=== PATIENT | male | born 1980 | race Caucasian/White ===

== ENCOUNTER 2021-04-17 15:11 | Outpatient (REF) | payer OTHER, SELFPAY ==
[2021-04-17 15:59] LABS: Hematocrit 43.6 % (42.0-52.0); Hemoglobin 14.6 g/dl (14.0-18.0); Mean Corpuscular HGB Conc 33.5 g/dl (31.0-36.0); Mean Corpuscular Hemoglobin 32.6 pg (27.0-33.0); Mean Corpuscular Volume 97.3 fL (80.0-98.0); Mean Platelet Volume 10.5 fL (9.4-12.4); Platelet Count 238 X10*3/uL (160-400); Red Blood Count 4.48 X10*6/uL (4.60-5.80); Red Cell Distribution Width 12.8 % (11.0-16.0); White Blood Count 5.5 X10*3/uL (4.8-10.8)
[2021-04-17 16:22] LABS: Alanine Aminotransferase 20 U/L (0-40); Albumin Level 4.4 g/dL (3.5-5.0); Alkaline Phosphatase 78 U/L (39-117); Anion Gap 10 (12-20); Aspartate Amino Transferase 18 U/L (5-37); Bilirubin Total 0.5 mg/dL (0.0-1.0); Blood Urea Nitrogen 14 mg/dL (9-16); Calcium 9.5 mg/dL (8.4-10.2); Carbon Dioxide 29 mmol/L (22-29); Chloride 106 mmol/L (96-108); Estimated Glomerular Filt Rate > 60; Glucose Random 75 mg/dL (60-115); Phosphorus 2.9 mg/dL (2.7-4.5); Potassium 4.7 mmol/L (3.3-5.1); Sodium 140 mmol/L (135-145)
== END 2021-04-17 15:12 | disposition home or self-care (01) ==
LOC: HO.LAB 15:11
PROVIDERS: PCP Family Medicine; Visit Provider Nurse Practitioner Psychiatric/Mental Health
DX: F50.9 Eating disorder, unspecified (principal)
CPT/HCPCS: 80053; 84100; 85027

== ENCOUNTER 2021-05-19 08:00 | Outpatient (RCR) | payer OTHER, SELFPAY ==
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
[2021-04-25 16:21] VITALS: BMI 16.0
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
--- NOTE | 2021-04-26 15:28 | PC.NURSE ---
Case opened in treatment team.
--- NOTE | 2021-05-01 13:59 | HO.PHPPROGNO ---
Subjective Subjective Date of Service: 05/01/21 Reason For Visit: MDD, recurrent, severe, Generalized Anxiety D/o Guardianship: No Medical Problems Affecting Mental Status: No Interim History: Client reports he started trileptal last night, and has taken 2 doses as of today. Reports he has been kind of struggling, dealing with anger . Denies any other concerns at this time. No SI/HI reported, no safety concern at this time. Medication Compliance: Intermittent Side effects from medications: No Attending Groups: Yes Review of Systems Acute medical concerns: No Medical Review of Systems: unchanged Review of Systems Review of Systems Yes all other systems are reviewed and are negative Constitutional: Reports no additional constitutional complaints Mental Status Exam Mental Status Exam Narrative: Well-developed, well-nourished male, in NAD. Describes mood lability at times, outbursts of anger. Patient Appearance: Well Grooomed and Appropriate Patient Orientation: Person, Place, Time and Situation Level of Consciousness: Appropriate and Alert Patient Behavior: Appropriate, Cooperative and Good Eye Contact Mood Description: Appropriate and Anxious Affect Description: Appropriate, Depressed and Anxious Patient Cognition Impaired: No Ability to Follow Directions: Excellent Speech Pattern: Clear, Appropriate and Coherent Memory Description: Intact Hallucinations: None Delusions: Not Present Thought Process: Intact, Goal Oriented and Linear Thought Content: positive for Intact, positive for Goal Oriented and positive for Linear Depressive Symptoms: Increased Anxiety, Increased Irritability, Loss of Int. in Activity and Difficulty Concentrating Judgement: Fair Diagnostics Vital Signs (24Hr): Body Mass Index 16.0 Assessment & Plan Assessment & Plan (1) MDD (major depressive disorder), recurrent episode, moderate: Status: Acute Code(s): F33.1 - Major depressive disorder, recurrent, moderate Assessment and Plan: Client reports he started trileptal last night, and has taken 2 doses as of today. Patient requested more information about Trileptal. Medication was discussed, including risks, benefits, side effects, and alternatives. States he is willing to continue taking it, and is willing to increase dose during next encounter. He reports he has been kind of struggling, dealing with anger . Denies any other concerns at this time. No SI/HI reported, no safety concern at this time. (2) KYLIE (generalized anxiety disorder): Status: Acute Code(s): F41.1 - Generalized anxiety disorder Assessment and Plan: Reports some anxiety, states that he is struggling with his anger and learning what his triggers are. (3) Borderline personality disorder: Status: Acute Code(s): F60.3 - Borderline personality disorder (4) Post traumatic stress disorder (PTSD): Status: Acute Code(s): F43.10 - Post-traumatic stress disorder, unspecified Assessment and Plan: 1. Continue current medication regimen as prescribed. 2. Consider increase in Trileptal next visit. 3. Follow-up as per protocol. Patient educated on: diagnosis and medication risk/benefits Certification I certify that partial hospital treatment is medically necessary due to the symptoms and problems resulting from the patient's mental illness and the failure to treat the patient at the partial hospital level of care would likely result in the patient requiring inpatient psychiatric care which could not be prevented at a less intensive level of care. I spent minutes with the patient and/or on the patient floor today, greater than?50% of which was spent counseling/coordinating care. Discharge Plan Discharge Attending provider: Jeffrey Martin Primary Care Provider: Jesse Longo Medications: New oxcarbazepine [Trileptal] 150 mg tablet 150 mg PO BID Qty: 14 RF: 0 No Action oxycodone 10 mg tablet 10 mg PO BID PRN (Reason: Pain) RF: 0 Referrals: Jesse Longo MD [Primary Care Provider] - 1 Week Telehealth Telehealth Location of provider rendering services: practice address Location of patient: address on file Patient Identification confirmed using: Name, : Yes Telehealth method: video Patient verbally consented to treatment: Yes Patient verbally consented to billing insurance company: Yes Patient informed of any privacy concerns related to visit: Yes Time spent with patient (mins): 15
--- NOTE | 2021-05-01 15:44 | PC.NURSE ---
I called and spoke with pt about aftercare options. He agreed to call MELVIN Roman at [facility] to inquire about the intensive/ full model DBT program. I agreed tto call central registration at [facility] to inquire about a referral for therapy/ med management (knowing that he might be assigned a DBT therapist if he gets into the program). Pt is scheduled to discharge on Saturday, 05/19. He asked me to contact his work to let them know he is in treatment, and he will send me the contact info via email.
--- NOTE | 2021-05-01 15:48 | PC.NURSE ---
After speaking with pt and getting his permission, I called [facility] central registration and spoke to Daphne. She will send (email) paperwork for me or pt to fill out for a referral. She said if pt gets into the DBT program, this paperwork will apply to that. Or, he will be a regular referral for therapy/ med management.
--- NOTE | 2021-05-05 12:23 | P.EN_ITS ---
Event Note Date of Service: 05/05/21 Event Note: A script sent to pharmacy for 14 day supply of Trileptal 150 mg b. i.d..
--- NOTE | 2021-05-09 11:19 | P.PNPSP_ITS ---
Subjective Subjective Date of Service: 05/09/21 Reason For Visit: MDD, recurrent, severe, Generalized Anxiety D/o Interim History: Patient evaluated remotely this morning and upon interview he reports he has been adherent with trileptal 150 mg BID x 8 days, says its going pretty well I think. Says he had poor sleep last night but in general i feel little less anxious, also notices fewer angry outbursts, the severity has been a little bit less, im a little more even keeled. Pt denies adverse effects, no rash. He does not want dose changes, as he wants to give it more time. Says he is trying to learn more about his triggers for anger through the program. Pt complains of inattention, feels zoned out and says his ability to read a book is poor, which is causing frustration. Willing to talk with medication for ADHD with his PCP, discussed vyvanse but that I would not start a controlled substance at [facility]. Pt denies stressors other than having looming anxiety that i have to go back to work. However, feels he is getting myself into a better routine, which should help with work and setting myself up for success. Pt says he feels safe, denies SI/SIB/HI or assaultive ideation. Medication Compliance: Yes Side effects from medications: No Attending Groups: Yes Review of Systems Acute medical concerns: No Medical Review of Systems: unchanged Mental Status Exam Mental Status Exam Narrative: Well-developed, well-nourished male, in NAD.? Describes mood lability at times, outbursts of anger. Patient Appearance:?Well Groomed and Appropriate Patient Orientation:?Person, Place, Time and Situation Level of Consciousness:?Appropriate and Alert Patient Behavior:?Appropriate, Cooperative and Good Eye Contact Mood Description:?Appropriate and Anxious Affect Description:?Appropriate, Depressed and Anxious Patient Cognition Impaired:?No Ability to Follow Directions:?Excellent Speech Pattern:?Clear, Appropriate and Coherent Memory Description:?Intact Hallucinations:?None Delusions:?Not Present Thought Process:?Intact, Goal Oriented and Linear Thought Content:?positive for Intact, positive for Goal Oriented and positive for Linear Depressive Symptoms:?Increased Anxiety, Increased Irritability, Loss of Int. in Activity and Difficulty Concentrating Judgment:?Fair Diagnostics Vital Signs (24Hr): BMI result Body Mass Index 16.0 Assessment & Plan Assessment & Plan (1) Borderline personality disorder: Status: Acute Code(s): F60.3 - Borderline personality disorder (2) KYLIE (generalized anxiety disorder): Status: Acute Code(s): F41.1 - Generalized anxiety disorder Assessment and Plan: Has noticed some improvement in anxiety, has hx of struggling with his anger and he is trying to learn what his triggers are. (3) MDD (major depressive disorder), recurrent episode, moderate: Status: Acute Code(s): F33.1 - Major depressive disorder, recurrent, moderate Assessment and Plan: Pt has been adherent on trileptal x 8 days.?Reports positive effect for mood s tability. Does not want med changes, wants to continue trial of trileptal 150 mg BID and monitor for benefit. No SI/HI reported, no safety concern at this time. (4) Post traumatic stress disorder (PTSD): Status: Acute Code(s): F43.10 - Post-traumatic stress disorder, unspecified Assessment and Plan: 1. Continue current medication regimen as prescribed. 2. Consider increase in Trileptal next visit. 3. Follow-up as per protocol. Patient educated on: medication risk/benefits Certification I certify that partial hospital treatment is medically necessary due to the symptoms and problems resulting from the patient's mental illness and the failure to treat the patient at the partial hospital level of care would likely result in the patient requiring inpatient psychiatric care which could not be prevented at a less intensive level of care. I spent minutes with the patient and/or on the patient floor today, greater than?50% of which was spent counseling/coordinating care. Discharge Plan Discharge Attending provider: Jeffrey Martin Primary Care Provider: Jesse Longo Medications: New oxcarbazepine [Trileptal] 150 mg tablet 150 mg PO BID 14 Days Qty: 28 RF: 0 No Action oxycodone 10 mg tablet 10 mg PO BID PRN (Reason: Pain) RF: 0 Referrals: Jesse Longo MD [Primary Care Provider] - 1 Week
--- NOTE | 2021-05-09 14:06 | PC.NURSE ---
I spoke to pt about aftercare. He said he did complete an evaluation for the full-model intensive DBT program at [facility], and was accepted into the program. He said, however, that there is a 6 week wait before he can start. He met with and was evaluated by MELVIN Roman, the DBT coordinator. He said that Elio suggested he not attempt to get a regular therapist at [facility] before getting into the DBT program, as he would then have to be re-evaluated for DBT, and that would mean losing his place in line to get in to the program. So, pt is opting to wait to get a therapist until the DBT program starts. They will assign him a DBT therapist. He is looking into support groups online to use for support while he waits.
--- NOTE | 2021-05-16 11:42 | HO.PHPPROGNO ---
Subjective Subjective Date of Service: 05/16/21 Reason For Visit: MDD, recurrent, severe, Generalized Anxiety D/o Interim History: Patient evaluated this morning and upon interview he reports Im okay, im pretty good. Continues to report trileptal has been messing with my sleep a little bit, but says it feels like trade off as long as im able to get rest, as he also feels it has been helping with his mood sx, anxiety, and agitation, Im feeling the benefit. Pt reports he will try to take the second trileptal dose earlier, at 3-5pm, to see if this helps with sleep, although overall he does feel he has been getting adequate sleep. has a lull, doing something good. Stressors include thoughts of going back to work and whether or not i even wanna stay in that career path. Says groups have been helpful, as he has been learning how to care for myself. Plans to talk to PCP about vyvanse.? Medication Compliance: Yes Side effects from medications: No Attending Groups: Yes Review of Systems Acute medical concerns: No Medical Review of Systems: unchanged Mental Status Exam Mental Status Exam Narrative: Well-developed, well-nourished male, in NAD.? Patient Appearance:?Well Groomed and Appropriate Patient Orientation:?Person, Place, Time and Situation Level of Consciousness:?Appropriate and Alert Patient Behavior:?Appropriate, Cooperative and Good Eye Contact Mood Description:? okay . Affect Description:? Stable, full range of affect. Patient Cognition Impaired:?No Ability to Follow Directions:?Excellent Speech Pattern:?Clear, Appropriate and Coherent Memory Description:?Intact Hallucinations:?None Delusions:?Not Present Thought Process:?Intact, Goal Oriented and Linear Thought Content:?positive for Intact, positive for Goal Oriented and positive for Linear Depressive Symptoms:?Increased Anxiety, Difficulty Concentrating Judgment:?Intact Diagnostics Vital Signs (24Hr): BMI result Body Mass Index 16.0 Assessment & Plan Assessment & Plan (1) Borderline personality disorder: Status: Acute Code(s): F60.3 - Borderline personality disorder (2) Post traumatic stress disorder (PTSD): Status: Acute Code(s): F43.10 - Post-traumatic stress disorder, unspecified (3) KYLIE (generalized anxiety disorder): Status: Acute Code(s): F41.1 - Generalized anxiety disorder (4) MDD (major depressive disorder), recurrent episode, moderate: Status: Acute Code(s): F33.1 - Major depressive disorder, recurrent, moderate Assessment and Plan: Pt reports positive effect on Trileptal dose of 150 mg b.i.d..? He reports that he feels it is helping stabilize his mood. Does not want med changes. Discussed taking second dose closer to 3-5pm due to reports that it is affecting his sleep onset. Otherwise no questions or concerns. 1. Continue Trileptal 150 mg b.i.d., script sent. 2. Will follow up per protocol as needed Certification I certify that partial hospital treatment is medically necessary due to the symptoms and problems resulting from the patient's mental illness and the failure to treat the patient at the partial hospital level of care would likely result in the patient requiring inpatient psychiatric care which could not be prevented at a less intensive level of care. I spent minutes with the patient and/or on the patient floor today, greater than?50% of which was spent counseling/coordinating care. Discharge Plan Discharge Attending provider: Jeffrey Martin Primary Care Provider: Jesse Longo Medications: New oxcarbazepine [Trileptal] 150 mg tablet 150 mg PO BID Qty: 60 RF: 0 No Action oxycodone 10 mg tablet 10 mg PO BID PRN (Reason: Pain) RF: 0 Referrals: Jesse Longo MD [Primary Care Provider] - 1 Week Stand Alone Forms: Patient Portal Discharge page
--- NOTE | 2021-05-19 12:45 | PC.NURSE ---
Patient discharging from the program today. Checked in with patient and reviewed patient medications with patient. Patient reports taking his medications as prescribed. Denied SI or any safety concerns. Patient feels good about discharge and feels ready.
--- NOTE | 2021-05-19 16:12 | HO.PHPPROGNO ---
Subjective Subjective Date of Service: 05/19/21 Reason For Visit: MDD, recurrent, severe, Generalized Anxiety D/o Guardianship: No Medical Problems Affecting Mental Status: No Interim History: Favored reports feeling stable, and that he is ready to complete PHP. Reports that his symptoms of anxiety and depression have decreased, and that he now has more tools to learn how to deal with life stressors. Reports that he believes he may need Vyvanse for attention deficit, plans to meet with his outpatient provider regarding this. Medication Compliance: Yes Side effects from medications: No Attending Groups: Yes Review of Systems Acute medical concerns: No Medical Review of Systems: unchanged Review of Systems Review of Systems Yes all other systems are reviewed and are negative Constitutional: Reports no additional constitutional complaints Mental Status Exam Mental Status Exam Narrative: Well-developed, well-nourished male, in NAD.? Patient Appearance:?Well Groomed and Appropriate Patient Orientation:?Person, Place, Time and Situation Level of Consciousness:?Appropriate and Alert Patient Behavior:?Appropriate, Cooperative and Good Eye Contact Mood Description:? good . Affect Description:? Stable, full range of affect. Patient Cognition Impaired:?No Ability to Follow Directions:?Excellent Speech Pattern:?Clear, Appropriate and Coherent Memory Description:?Intact Hallucinations:?None Delusions:?Not Present Thought Process:?Intact, Goal Oriented and Linear Thought Content:?positive for Intact, positive for Goal Oriented and positive for Linear Depressive Symptoms:?Increased Anxiety, Difficulty Concentrating Judgment:?Intact Diagnostics Vital Signs (24Hr): BMI result Body Mass Index 16.0 Assessment & Plan Assessment & Plan (1) MDD (major depressive disorder), recurrent episode, moderate: Status: Acute Code(s): F33.1 - Major depressive disorder, recurrent, moderate Assessment and Plan: They have a describes his mood as stable. Reports he feels ready to leave the program, and that he now has more coping tools to utilize. No thoughts of harm to self or others, no safety concern. He reports that overall he believes his agitation and anger that he feels at times may actually be due to undiagnosed ADHD. He states that he plans to ask his outpatient provider about medication Vyvanse. Medication education, including risks and benefits, provided regarding Vyvanse, Strattera, Trileptal. Reports he is satisfied with Trileptal dose of 150 mg b.i.d.. He reports that he feels it is helping stabilize his mood. Requests a refill, refill sent to his pharmacy for 30 days supply. (2) KYLIE (generalized anxiety disorder): Status: Acute Code(s): F41.1 - Generalized anxiety disorder (3) Borderline personality disorder: Status: Acute Code(s): F60.3 - Borderline personality disorder (4) Post traumatic stress disorder (PTSD): Status: Acute Code(s): F43.10 - Post-traumatic stress disorder, unspecified Assessment and Plan: 1. Continue Trileptal 150 mg b.i.d., script sent. 2. Client appears stable at this time for discharge from [facility]. 3. Client will follow up with outpatient provider going forward. Reason for contiued partial hosp. stay Substantial Risk for: stable for discharge Certification I certify that partial hospital treatment is medically necessary due to the symptoms and problems resulting from the patient's mental illness and the failure to treat the patient at the partial hospital level of care would likely result in the patient requiring inpatient psychiatric care which could not be prevented at a less intensive level of care. I spent minutes with the patient and/or on the patient floor today, greater than?50% of which was spent counseling/coordinating care. Discharge Plan Discharge Attending provider: Jeffrey Martin Primary Care Provider: Jesse Longo Medications: New oxcarbazepine [Trileptal] 150 mg tablet 150 mg PO BID Qty: 60 RF: 0 No Action oxycodone 10 mg tablet 10 mg PO BID PRN (Reason: Pain) RF: 0 Referrals: Jesse Longo MD [Primary Care Provider] - 1 Week Stand Alone Forms: Patient Portal Discharge page Telehealth Telehealth Location of provider rendering services: practice address Location of patient: address on file Patient Identification confirmed using: Name, : Yes Telehealth method: video Patient verbally consented to treatment: Yes Patient verbally consented to billing insurance company: Yes Patient informed of any privacy concerns related to visit: Yes Time spent with patient (mins): 15
== END 2021-05-22 07:59 | disposition home or self-care (01) ==
LOC: HO.PHPA 08:00
PROVIDERS: PCP Family Medicine; Visit Provider Psychiatry & Neurology Psychiatry
DX: F33.1 Major depressive disorder, recurrent, moderate (principal); F41.1 Generalized anxiety disorder; F60.3 Borderline personality disorder; F43.10 Post-traumatic stress disorder, unspecified
CPT/HCPCS: 90791; 90853; 99499

== ENCOUNTER → 2023-08-16 13:00 | Outpatient (BNV) | payer OTHER, SELFPAY | PROVIDERS: Visit Provider Psychiatry & Neurology Psychiatry | DX: F39 Unspecified mood [affective] disorder (principal); F41.1 Generalized anxiety disorder; F43.10 Post-traumatic stress disorder, unspecified; F50.9 Eating disorder, unspecified; F90.9 Attention-deficit hyperactivity disorder, unspecified type; Z86.59 Personal history of other mental and behavioral disorders | CPT/HCPCS: 90792; 99213; 99214 ==

== ENCOUNTER 2023-08-21 12:45 | Outpatient (RCR) | payer OTHER, SELFPAY ==
[2023-08-08 10:51] VITALS: BP 119/73; PULSE 82; TEMP 37.1
[2023-08-08 10:53] VITALS: BMI 15.0
--- NOTE | 2023-08-08 18:20 | HO.PHP ---
Client's case has been opened and reviewed in treatment team.
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
--- NOTE | 2023-08-13 16:13 | HO.PHP ---
PHP admin faxed over the referral for [facility] for OP therapy and med management. PHP staff is awaiting a response on the scheduled appointment date and time.
--- NOTE | 2023-08-15 16:31 | HO.PHP ---
PHP staff member followed up with Daphne through [facility] in regards to a message that was left by Jay due to the number not working that was provided. Daphne is the livestock yard supervisor for referrals. Daphne explored when the clients discharge date will be so she can have Jay register him. [facility] staff provided that information. Daphne expressed that they will call with an appointment shortly. PHP staff also explored how med mangement looks, in which Daphne provided insight.
--- NOTE | 2023-08-15 16:44 | HO.PHP ---
Tim informed PHP staff member during one of the groups that his PCP is working with him on accessing support through the [facility] for his eating disorder.
--- NOTE | 2023-08-16 14:53 | HO.PHP ---
[facility] staff member met with Tim due to him becoming dysregulated in group two. Tim was tearful and expressed fear around his future/ the unknown. [facility] staff encouraged Tim to reframe his way of thinking and to bring himself back to the here and now when he catches himself thinking into the future. Tim talked about decisions he has to make and what will happen if he doesn't. Tim disclosed he wants to go back to school but doesn't know if now is the right time. [facility] staff member encouraged him to write down the pros and cons to help him organize his thoughts. Tim found this to be helpful. Tim was able to regulate and return to group.
--- NOTE | 2023-08-16 23:50 | HO.PHPPROGNO ---
Subjective Subjective Date of Service: 08/16/23 Reason For Visit: MDD,KYLIE Interim History: Patient still dealing with significant amount of anxiety and emotional dysregulation. Has been on Trileptal for a couple of years which has helped to some degree with his mood dysregulation, irritability and impulsivity without it I'm like Dr. Beavers and Mr. Koroma. But overall he reports his mood stability as still really bad (at a 2 out of 10) as he has not been able to tolerate the further increase in dose to 450 mg/d (particularly the AM dose) and has remained at 300 mg/d dose. He does not feel the Trileptal has helped with depression, cognitive dissonance, negative self talk, panic symptoms, PTSD, cognitive anxiety, intrusive thoughts, as well as hyperfixation and ADHD symptoms, especially executive functioning and problem-solving. He also reports some tendencies toward being a hyperchondriac , and describes obsessive ruminations, gets emotionally flooded easily by his internal thought loops and this interferes with his ability to self regulate as well as negatively impacting his social interactions as well as general functioning. He relays feeling demoralized and feels he is in a no win situation with the ADHD because he is unable to tolerate any stimulant medication (which had been immensely helpful to him as a young adult) due to their appetite-suppressing effects and being woefully underweight. He also shares that he struggles with GI issues with cause significant discomfort and pain which makes eating difficult, and further aggravates the ED and struggles with low weight (currently at 110 lbs), but also shares that he has struggled with bed sores on his lower back and buttocks from his wheelchair, which causes him such distress that it is a constant reminder to also avoid putting on too much weight. (He says he is expecting a new wheelchair but not until later in the year.) He has never been treated with an antipsychotic mood stabilizer, and given the severity of his PTSD symptoms, especially when going into further detail regarding significant iatrogenic traumas over the years which appear to strongly correlate with his ED, and has been further compounded by poor appetite relating to severe anxiety and depression. We discuss a number of treatment options including ABilify and Latuda. Given concerns about patient being able to sustain an adequate caloric intake, I suggest we try the ABilify. However patient shared being quite eager to take the Latuda, he is hoping that the caloric requirement will keep him accountable for eating more regularly and feels he optimistic he will be able to do this because he is so motivated to try a new medication. Given his issues with ADHD as well as severe anxiety, we discussed trialling Intuniv in the late afternoon for now, to see how sensitive he is and determine whether he would be able to tolerate BID dosing, or if too sedating we will focus on HS dosing. He is also without a current psych med provider, his PCP has been managing medication. Medication Compliance: Yes Side effects from medications: No Attending Groups: Yes Review of Systems Acute medical concerns: No Mental Status Exam Mental Status Exam Narrative: Alert, oriented, in no acute distress. Calm, cooperative, engaged. Paraplegic, ambulates in wheelchair. No tics, tremors, or dysarthria. No psychomotor agitation or neurovegetative retardation. Eye contact maintained. Mood depressed, affect dysthymic, tearfulness. Speech normal. Thought process scattered, linear, coherent. Thought content related to stressors, executive dysfunction, feeling overwhelmed, some transient helplessness and hopelessness, denies SI, intention or plan. Denies any aggressive ideation. No paranoia or delusional content elicited. No evidence of psychosis. Insight and judgment fair but adequate. Diagnostics Vital Signs (24Hr): BMI result Body Mass Index 15.0 Assessment & Plan Assessment & Plan (1) Bipolar disorder, unspecified: Qualifiers: Active/Remission status: currently active Current bipolar episode type: depressed Current episode severity: moderate Qualified Code(s): F31.32 - Bipolar disorder, current episode depressed, moderate Status: Acute Code(s): F31.9 - Bipolar disorder, unspecified (2) Eating disorder, unspecified: Qualifiers: Eating disorder type: unspecified eating disorder Qualified Code(s): F50.9 - Eating disorder, unspecified Status: Acute Code(s): F50.9 - Eating disorder, unspecified Assessment and Plan: restricting behaviors related to iatrogenic trauma/PTSD-related ED as well as reasonable concerns for developing sores in addition to possible Anorexia Nervosa (2 out 3 criteria) (3) Post traumatic stress disorder (PTSD): Status: Acute Code(s): F43.10 - Post-traumatic stress disorder, unspecified (4) Other mixed anxiety disorders: Status: Acute Code(s): F41.3 - Other mixed anxiety disorders (5) Attention-deficit hyperactivity disorder, unspecified type: Qualifiers: Attention deficit-hyperactivity disorder type: other Qualified Code(s): F90.8 - Attention-deficit hyperactivity disorder, other type Status: Acute Code(s): F90.9 - Attention-deficit hyperactivity disorder, unspecified type Assessment and Plan: Attention deficit, executive dysfunction Per patient report, hx of neuropsych testing +dx ADHD (6) Unspecified mental disorder due to known physiological condition: Status: Acute Code(s): F09 - Unspecified mental disorder due to known physiological condition Assessment and Plan: r/o mild neurocognitive disorder due to known physiological condition (TBI, nutritional deficiency) Plan Latuda 40 mg - start 1/2 tablet (20 mg) daily with evening meal once tolerated may increase to full tablet 40 mg start gunafacine ER 1 mg daily in late afternoon (depending on tolerance will decide if AM dosing will help with anxiety, or whether will remain as evening dosing) continue oxcarbazepine 150 mg BID for now (finds 300 mg in AM too sedating) continue buspirone 15 mg BID pending routine lab work, nutritional labs, and baseline EKG reviewed VS from 08/07, will recheck next week with starting guanfacine ER continue to monitor Patient educated on: diagnosis, medication risk/benefits and substance abuse Informed Consent: understands Reason for contiued partial hosp. stay Substantial Risk for: inability to function and med/psych decompensation Certification I certify that partial hospital treatment is medically necessary due to the symptoms and problems resulting from the patient's mental illness and the failure to treat the patient at the partial hospital level of care would likely result in the patient requiring inpatient psychiatric care which could not be prevented at a less intensive level of care. Total time managing care of this patient today __30__ minutes. Discharge Plan Discharge Attending provider: Olimpia Rodriguez Medications: New lurasidone 40 mg tablet 40 mg PO QPM Qty: 20 0RF Rx Instructions: must administer with food (at least 350 calories) guanfacine 1 mg tablet extended release 24 hr 1 mg PO DAILY Qty: 20 0RF Continued oxcarbazepine 150 mg Tablet See Rx Instructions .ROUTE .COMPLEX Rx Instructions: Take two tabs in the morning and 1 tab in the evening. buspirone 15 mg Tablet 15 mg PO BID
--- NOTE | 2023-08-20 11:01 | HO.PHP ---
Spoke to Daphne from [facility], in which she disclosed that Jay will be reaching out to Tim with his appointment date today. PHP staff member was receptive.
--- NOTE | 2023-08-20 22:49 | HO.PHPPROGNO ---
Subjective Subjective Date of Service: 08/20/23 Reason For Visit: MDD,KYLIE Interim History: Patient seen for follow-up, anticipating discharge at the end of program tomorrow.? Reports no acute issues or concerns. Medication compliant, medications well-tolerated. Denies any adverse effects.?He has not been able to apple picker and start on the Latuda. He agrees to go by the pharmacy and start on 1/2 tablet this evening.Will plan to check in with RN for any questions or concerns and will reach me to discuss further. He reports overall feeling more optimistic and calmer with the guanfacine. He feels it helps with focus and likes being able to take it twice a day. He reports being better than when I got here.. more stable He identifies as having baseline [place] issues and feels he will benefit from the Latuda and looks forward to starting on it.? Denies any hopelessness or SI. Denies thoughts of harming self or others at this time. Denies any aggressive ideation or HI. Denies any paranoia or AH or VH. Sleep, appetite, energy stable. Medication Compliance: Yes Side effects from medications: No Attending Groups: Yes Review of Systems Acute medical concerns: No Mental Status Exam Mental Status Exam Narrative: Alert, oriented, in no acute distress. Calm, cooperative. Mood stable, affect appropriate. Speech normal. Thought process more goal-directed. Thought content related to stressors, future-oriented, denies any helplessness, hopelessness or SI.? No aggressive ideation or HI. No paranoia or delusional content elicited. No evidence of psychosis. Denies AVH. Insight and judgment fair-good. Diagnostics Vital Signs (24Hr): BMI result Body Mass Index 15.0 Assessment & Plan Assessment & Plan (1) Mood disorder: Status: Acute Code(s): F39 - Unspecified mood [affective] disorder (2) KYLIE (generalized anxiety disorder): Status: Acute Code(s): F41.1 - Generalized anxiety disorder (3) Post traumatic stress disorder (PTSD): Status: Acute Code(s): F43.10 - Post-traumatic stress disorder, unspecified (4) Eating disorder, unspecified: Qualifiers: Eating disorder type: unspecified eating disorder Qualified Code(s): F50.9 - Eating disorder, unspecified Status: Acute Code(s): F50.9 - Eating disorder, unspecified (5) ADHD (attention deficit hyperactivity disorder): Status: Inactive Code(s): F90.9 - Attention-deficit hyperactivity disorder, unspecified type (6) Hx of borderline personality disorder: Status: Acute Code(s): Z86.59 - Personal history of other mental and behavioral disorders Plan Discharge from [facility] tomorrow stay on Latuda at 1/2 tablet (20 mg) daily with evening meal until follows up with provider continue guanfacine ER 1 mg BID continue oxcarbazepine 150 mg BID continue buspirone 15 mg BID continue other regular medicaitons Patient also given information about TMS at [facility] and can call for referral if he changes his mind patient will reach out to provider Jesse Longo MD and make f/u appointment today will defer further medication management to outpatient provider Refills sent to pharmacy Patient educated on: diagnosis, medication risk/benefits, TMS and medical condition Informed Consent: understands Reason for contiued partial hosp. stay Substantial Risk for: stable for discharge Certification I certify that partial hospital treatment is medically necessary due to the symptoms and problems resulting from the patient's mental illness and the failure to treat the patient at the partial hospital level of care would likely result in the patient requiring inpatient psychiatric care which could not be prevented at a less intensive level of care. Total time managing care of this patient today _30___ minutes. Discharge Plan Discharge Attending provider: Olimpia Rodriguez Additional Instructions: Tim has an OP therapy intake at [facility] on September 03, 2023 at 2:30 PM. Medications: New aripiprazole 2 mg tablet 2 mg PO BEDTIME Qty: 20 0RF Continued oxcarbazepine 150 mg Tablet See Rx Instructions .ROUTE .COMPLEX Rx Instructions: Take two tabs in the morning and 1 tab in the evening. buspirone 15 mg Tablet 15 mg PO BID fluconazole 150 mg Tablet See Rx Instructions .ROUTE .COMPLEX Rx Instructions: 150 mg every other day for 14 days. Filled 08/15/23. #7 oxycodone 5 mg Capsule 5 mg PO BID PRN (Reason: Pain) Rx Instructions: Filled 08/17/23 #10 tabs. Changed guanfacine 1 mg tablet extended release 24 hr 1 - 2 mg PO QPM Qty: 30 0RF Stand Alone Forms: Patient Portal Discharge page Patient Education: Depression (DC) Print Language: Kinyarwanda
== END 2023-08-21 23:59 | disposition home or self-care (01) ==
LOC: HO.PHPA 12:45
PROVIDERS: Visit Provider Psychiatry & Neurology Psychiatry
DX: F31.32 Bipolar disorder, current episode depressed, moderate (principal); F41.3 Other mixed anxiety disorders; F43.10 Post-traumatic stress disorder, unspecified; F50.9 Eating disorder, unspecified; F90.9 Attention-deficit hyperactivity disorder, unspecified type; Z86.59 Personal history of other mental and behavioral disorders; Z79.899 Other long term (current) drug therapy
CPT/HCPCS: 90791; 90853

== ENCOUNTER 2025-05-01 20:03 | Emergency (ER) | payer OTHER, SELFPAY ==
--- NOTE | ~2025-05-01 | CT_ITS ---
CLINICAL HISTORY: abd pain CT abdomen and pelvis with contrast Comparison: None provided Findings: No consolidation or effusion. No focal hepatic lesion. Gallbladder, pancreas, spleen and adrenal glands are within normal limits. Kidneys are non hydronephrotic. No bowel obstruction, pneumoperitoneum, or pneumatosis. The appendix is not visualized. Asymmetry of left pelvis noted with old decubitus changes, [id number]-right. There is a 1.2 x 2 cm circumscribed fluid collection within the left perianal subcutaneous soft tissues. Large calculus is in the dependent urinary bladder. Urinary bladder wall is moderately thickened. Postsurgical changes are present with shanita and pedicle screw fusion of the thoracolumbar spine. IMPRESSION: 1. Large lamellated calcification in the urinary bladder with bladder wall thickening, possibly cystitis. 2. Left perianal circumscribed fluid collection measuring 1.2 x 2 cm. Please correlate clinically. 3. Ancillary CT findings detailed above. This document has been electronically signed by: Song Gilbert MD, PHD on 05/02/2025 01:10:52
[2025-05-01 20:18] VITALS: BP 132/68; PULSE 84; O2SAT 99; BMI 15.6
[2025-05-01 20:24] VITALS: BP 134/70; PULSE 91; RESP 20; TEMP 37.1; O2SAT 99
--- OUTSIDE RECORDS SUMMARY | 2025-05-01 20:36 | XMS_ITS | Clinical Summary ---
Author Organization [facility] Address [address] [place] [phone] Phone Care Team Providers Care Slot Manager Name Role Phone Jesse Longo MD, MPH Primary Care Provider + Allergies Active Allergy Reactions Criticality Noted Date Comments Sulfa (Sulfonamide Antibiotics) Unknown 10/02 Medications metoprolol tartrate (LOPRESSOR) 100 MG tablet Take 100 mg by mouth 2 (two) times a day. Active citalopram (CELEXA) 10 MG tablet Take 10 mg by mouth daily. Active divalproex (DEPAKOTE) [address] tablet Take 750 mg by mouth 3 (three) times a day. Active buPROPion (WELLBUTRIN) 100 MG immediate release tablet Take 100 mg by mouth daily. 09/25/2023 Active busPIRone (BUSPAR) 15 MG tablet Take 15 mg by mouth 2 (two) times a day (once in the morning and once in the afternoon). 09/30/2023 Active OXcarbazepine (TRILEPTAL) 150 MG tablet Take 150 mg by mouth 2 (two) times a day. 07/24/2023 Active oxyCODONE 5 MG immediate release tablet Take 5 mg by mouth every 4 (four) hours as needed. 10/10/2023 Active sildenafiL (VIAGRA) 100 mg tablet Take 100 mg by mouth as needed. Active Encounters Date Type Department Care Team Description 04/07/2025 8:39 AM EST - 04/07/2025 11:59 PM EST Hospital Encounter [facility], [address] [address] Michaela Jean MD Discharge Disposition: Home or Self Care 03/08/2025 Transcribe Orders Virtual Department [address] [place] [address] Michaela Jean MD Flaccid neurogenic bladder (Primary Dx); Benign prostatic hyperplasia without lower urinary tract symptoms from Last 3 Months Social History Tobacco Use Types Packs/Day Years Used Date Smoking Tobacco: Former Cigarettes S tarted: 1998 Smokeless Tobacco: Never Tobacco Cessation:Counseling Given: Not Answered Alcohol Use Standard Drinks/Week Comments No 0 (1 standard drink = 0.6 oz pur e alcohol) Education Answer Date Recorded Are you interested in more education? Not on mayda e 09/30/2022 Are you concerned about learning? Not on file 09/30/2022 No 09/30/2022 No 09/30/2022 Digital Access Answer Date Recorded No 10/28/2022 No 10/28/2022 Reliable internet access at home? Not on file 10/28/2022 Device with a working camera? Not on file Intimate Partner Violence Answer Date R ecorded Are you denied basic needs s uch as food, clothing, or medical care? No 10/22/2023 In the past 12 months have y ou been in a relationship with a person who hurts, threatens, or tries to control you? No 10/22/2023 Are you denied basic needs s uch as food, clothing, or medical care? No 10/22/2023 In the past 12 months have y ou been in a relationship with a person who hurts, threatens, or tries to control you? No 10/22/2023 Sex and Gender Information Value Date Recorded Sex Assigned at Not on file Legal Sex Male 5:04 PM EST Gender Identity Not on file Sexual Orientation Not on file Last Filed Vital Signs Vital Sign Reading Time Taken Comments Blood Pressure 109/73 10/22/2023 11:30 AM EDT Pulse 61 10/22/2023 11:30 AM EDT Temperature 36.1 C (97 F) 10/22/2023 11:20 AM EDT Respiratory Rate 26 10/22/2023 11:30 AM EDT Oxygen Saturation 98% 10/22/2023 11:30 AM EDT Inhaled Oxygen Concentration - - Weight 52.2 kg (115 lb) 10/21/2023 2:20 PM EDT Height 188 cm (6' 2 ) 10/21/2023 2:20 PM EDT Body Mass Index 14.77 10/21/2023 2:20 PM EDT Plan of Treatment Health Maintenance Due Date Last Done Comments LIPID PANEL 1978 VALPROIC ACID (DEPAKENE) LEVEL 1978 SMOKING Hx and SMOKELESS TOBACCO SCREENING 1991 HEPATITIS C SCREENING 1996 HIV ONE-TIME SCREENING (18-6 5 YEARS) 1996 Adult Td,Tdap Booster 07/28/2022 07/28/2012 COLOGUARD 2023 COLONOSCOPY 2023 COLORECTAL CANCER SCREENING 2023 FIT TEST 2023 FOBT 2023 SIGMOIDOSCOPY 2023 VIRTUAL COLONOSCOPY 2023 DEPRESSION SCREENING 09/15/2024 09/16/2023, 09/16/2023 INFLUENZA VACCINE (#1) 2025 COVID-19 VACCINE (2 - 2024-2 6 season) 2025 09/29/2020 HEPATITIS A VACCINES Aged Out No long er eligible based on patient's age to complete this topic HIB VACCINES Aged Out No longer eligi ble based on patient's age to complete this topic MENINGOCOCCAL VACCINES (ACWY) Aged Out No longer eligible based on patient's age to complete this topic MENINGOCOCCAL VACCINES (B) Aged Out N o longer eligible based on patient's age to complete this topic PNEUMOCOCCAL VACCINES (0-49 years) Aged Out No longer eligible b ased on patient's age to complete this topic Medical Devices Implanted Type Area Medical Research Assistant Device Identifier Shelf Expiration Date Model / Serial / Lot Michael Lumbar To Sacrum Michael Back Screw Screw Right: Finger Procedures Procedure Name Priority Date/Time Associated Diagnosis Comments US KIDNEYS AND BLADDER Routine 04/07/2025 9:09 AM EST Flaccid neurogenic bladder Benign prostatic hyperplasia without lower urinary tract symptoms from Last 3 Months Results * US Kidneys and Bladder (04/07/2025 9:09 AM EST) Anatomical Region Laterality Modality Abdomen, Kidney Ultrasound 04/07/2025 10:2 8 AM EST Impressions 04/07/2025 10:31 AM EST 1. No hydronephrosis. 2. Prevoid bladder volume of 812 mL. 3. Debris and stone within the bladder. Narrative 04/07/2025 10:31 AM EST US KIDNEYS AND BLADDER Referring clinician's provided indication for this examination in [facility]: Outside Radiology Order TECHNIQUE: Kidney and bladder ultrasound. COMPARISON: None FINDINGS: Right Kidney: Size: 10.0 cm No stones or hydronephrosis. Left Kidney: Size: 8.8 cm No stones or hydronephrosis. Bladder: Prevoid volume of 812 mL. Debris within the bladder. Dependent shadowing stones measuring up to 2.9 cm. Prostate: Volume of 22 mL. Procedure Note Raghavendra Bernabe DO, MPH - 04/07/2025 US KIDNEYS AND BLADDER Referring clinician's provided indication for this examination in [facility]:Outside Radiology Order TECHNIQUE: Kidney and bladder ultrasound. COMPARISON: None FINDINGS: Right Kidney: Size: 10.0 cm No stones or hydronephrosis. Left Kidney: Size: 8.8 cm No stones or hydronephrosis. Bladder: Prevoid volume of 812 mL. Debris within the bladder. Dependentshadowing stones measuring up to 2.9 cm. Prostate: Volume of 22 mL. IMPRESSION: 1. No hydronephrosis. 2. Prevoid bladder volume of 812 mL. 3. Debris and stone within the bladder. Michaela Jean MD [facility] Final Re sult from Last 3 Months Insurance [facility] LEEDS POS [facility] LEED[facility] POS [facility] A[facility] UNITED POS [facility] [employer] LEEDS POS [facility] [employer] LEEDS POS [facility] [employer] LEEDS POS Care Teams Slot Manager Relationship Specialty Start Date End Date Jesse Longo MD, MPH [address] [place] [phone] [email or web address] PCP - General Family Medicine 01/09/18 Additional Source Comments The information contained in this document represents components of the legal health record. It is not the complete legal health record.[facility]
--- OUTSIDE RECORDS SUMMARY | 2025-05-01 20:36 | XMS_ITS | Encounter Summary ---
Author Organization [facility] Address [address] [address] Phone Care Team Providers Care Steward/Stewardess Room Name Role Phone Jesse Longo MD, MPH Primary Care Provider + Raghavendra Mcknight STROBOROMA OPERATOR Unavailable [phone] Encounter Details Date Type Department Care Team (Late st Contact Info) Description 10/22/2023 Procedure Pass [facility] Endoscopy Admitting Dept Virtual Department [address] [place] [address] Social History Tobacco Use Types Packs/Day Years Used Date Smoking Tobacco: Former Cigarettes S tarted: 1998 Smokeless Tobacco: Never Alcohol Use Standard Drinks/Week Comments No 0 [...] on file Sexual Orientation Not on file documented as of this encounter Plan of Treatment Not on file documented as of this encounter Visit Diagnoses Not on filedocumented in this encounter Additional Health Concerns Assessment Noted Time PHQ-9 Depression Total Score: 19 024 1:00 PM EDT PHQ-2 Depression Total Score: 5 09/16/19 24 1:00 PM EDT documented as of this encounter Care Teams Steward/Stewardess Room Relationship Specialty Start Date End Date Jesse Longo MD, MPH [address] [place] [address] [email or web address] PCP - General Family Medicine 01/09/18 Raghavendra Mcknight LICSW [address] [place] [address] [email or web address] PHCM Malware Analyst 09/02/23 07/09/24 documented as of this encounter Additional Source Comments The information contained in this document represents components of the legal health record. It is not the complete legal health record.[facility]
--- OUTSIDE RECORDS SUMMARY | 2025-05-01 20:36 | XMS_ITS | Encounter Summary ---
Author Organization [facility] Address [address] [place] [phone] Phone Care Team Providers Care Surgical Services Tech Name Role Phone Jesse Longo MD, MPH Primary Care Provider + Raghavendra Mcknight MANUFACTURING BUSINESS ANALYST Unavailable [phone] Reason for Referral * Outpatient Procedure - Closed Specialty Diagnoses / Procedures Referred By Ludmila ivy Referred To Contact Radiology Diagnoses Abdominal pain, unspecified abdominal location Procedures NM Gastric Emptying Tim Montes De Oca MD [address] [place] [phone] Phone: tel: fax: [email or web address] Referral ID Status Reason Start Date Expiration Date Visits Re quested Visits Authorized [id number] Closed 10/29/2023 10/28/2024 1 1 Encounter Details Date Type Department Care Team (Latest Contact Info) Description 10/29/2023 Transcribe Orders Virtual Department [address] [place] [address] Tim Montes De Oca MD [address] [address] [email or web address] Abdominal pain, unspecified abdominal location (Primary Dx) Social History Tobacco Use Types Packs/Day Years [...] on file documented as of this encounter Results * NM GASTRIC EMPTYING SOLID PHASE (11/08/2023 3:01 PM EDT) Anatomical Region Laterality Modality Abdomen, Pelvis Nuclear Medicine 11/09/2023 2:42 AM EDT Impressions 11/11/2023 10:23 AM EDT Gastric emptying study within normal limits. Narrative 11/11/2023 10:23 AM EDT NM GASTRIC EMPTYING SOLID PHASE Radionuclide gastric emptying scan: COMPARISON: None TECHNIQUE: A dose of 0.970 mCi technetium 99m sulfur colloid was given orally mixed with a standard meal. Intermittent upright imaging of the abdomen was performed immediately, and at 1 and 2 hours, and at 4 hours if indicated. 100% of the standardized meal was consumed. FINDINGS: Gastric emptying was: 1 hr: 47.8% 2 hrs: 91.3% 4 hrs: 98.5% According to accepted international standards using this technique, median normal values for emptying are: 31% at 1 hr, 76% at 2 hrs, and 99% at 4 hours. 5th percentile values for emptying are: 10% at 1 hr, 40% at 2 hrs, and 90% at 4 hours. These values apply for ingestion of 50% or greater of the standard meal (PMID: 88692088) and approximate the normative emptying values of [employer] (PMID: [id number]). Procedure Note Ariane Beckham MD - 11/11/2023 NM GASTRIC EMPTYING SOLID PHASE Radionuclide gastric emptying scan: COMPARISON: None TECHNIQUE: A dose of 0.970 mCi technetium 99m sulfur colloid was given orally mixedwith a standard meal. Intermittent upright imaging of the abdomen wasperformed immediately, and at 1 and 2 hours, and at 4 hours if indicated.100% of the standardized meal was consumed. FINDINGS: Gastric emptying was: 1 hr: 47.8% 2 hrs: 91.3% 4 hrs: 98.5% According to accepted international standards using this technique, mediannormal values for emptying are: 31% at 1 hr, 76% at 2 hrs, and 99% at 4 hours. 5th percentile values for emptying are: 10% at 1 hr, 40% at 2 hrs, and 90% at 4 hours. These values apply for ingestion of 50% or greater of the standard meal(PMID: 39647595) and approximate the normative emptying values of[employer] (PMID: [id number]). IMPRESSION: Gastric emptying study within normal limits. Tim Montes De Oca MD IMG NM ABDOMEN Final Resu lt documented in this encounter Visit Diagnoses Diagnosis Abdominal pain, unspecified abdominal location- Primary Abdominal pain, unspecified abdominal location documented in this encounter Additional Health Concerns Assessment Noted Time PHQ-9 Depression Total Score: 19 024 1:00 PM EDT PHQ-2 Depression Total Score: 5 09/16/19 24 1:00 PM EDT documented as of this encounter Care Teams Surgical Services Tech Relationship Specialty Start Date End Date Jesse Longo MD, MPH [address] [place] [address] [email or web address] PCP - General Family Medicine 01/09/18 Raghavendra Mcknight, MANUFACTURING BUSINESS ANALYST [address] [place] [address] [email or web address] Embroidery Finisher 09/02/23 07/09/24 documented as of this encounter Additional Source Comments The information contained in this document represents components of the legal health record. It is not the complete legal health record.[facility]
[2025-05-01 20:53] LABS: Hematocrit 44.1 % (42.0-52.0); Hemoglobin 14.9 g/dl (14.0-18.0); Imm Gran Abs Auto 0.06 X10*3/uL (0.00-0.03); Imm Gran Pct Auto 0.5 % (0.0-0.4); Lymphocytes Absolute Auto 0.6 X10*3/uL (1.2-4.9); MANUAL DIFF FLAG SCAN; Mean Corpuscular HGB Conc 33.8 g/dl (31.0-36.0); Mean Corpuscular Hemoglobin 32.3 pg (27.0-33.0); Mean Corpuscular Volume 95.5 fL (80.0-98.0); NRBC Abs Auto 0.000 X10*3/uL (0.0-0.012); NRBC Pct Auto 0.0 /100WBC (0.0-0.2); Platelet Count 191 X10*3/uL (160-400); Red Blood Count 4.62 X10*6/uL (4.60-5.80); SCAN SMEAR FLAG 1; White Blood Count 12.7 X10*3/uL (4.8-10.8)
[2025-05-01 21:07] LABS: Alanine Aminotransferase 41 U/L (0-40); Albumin Level 5.1 g/dL (3.5-5.0); Alkaline Phosphatase 68 U/L (39-117); Anion Gap 16 (12-20); Aspartate Amino Transferase 51 U/L (5-37); Blood Urea Nitrogen 17 mg/dL (9-16); Calcium 10.3 mg/dL (8.4-10.2); Carbon Dioxide 21 mmol/L (22-29); Chloride 107 mmol/L (96-108); Creatinine Clr Calc Pharmacy 100.2; Estimated Glomerular Filt Rate > 60; Lipase 11 U/L (8-78); Potassium 4.4 mmol/L (3.3-5.1); Sodium 140 mmol/L (135-145); Total Protein 7.6 g/dL (6.5-8.0)
[2025-05-01 21:28] LABS: Appearance Urine Cloudy; Glucose Urine UA Negative (Negative); PH 6.0 (5.0-9.0); Specific Gravity - Urine >= 1.030 (1.005-1.025); UMIC TRIGGER UACC YES
[2025-05-01 21:39] LABS: UACC Culture Trigger YES
--- NOTE | 2025-05-01 22:11 | ECG_ITS ---
Test Reason : QT CHECK Blood Pressure : */* mmHG Vent. Rate : 63 BPM Atrial Rate : 63 BPM P-R Int : 136 ms QRS Dur : 84 ms QT Int : 394 ms P-R-T Axes : 50 38 61 degrees QTcB Int : 403 ms Normal sinus rhythm Septal infarct , age undetermined Abnormal ECG When compared with ECG of 30-Jul-2019 08:32, No significant change was found Referred By: Austin Corbett Electronically Signed By: ELOISA GUAN
--- NOTE | 2025-05-01 22:51 | ED.GENADULT ---
HPI - General Adult General Chief complaint: Abdominal Pain Stated complaint: N/V/D Time Seen by Provider: 05/01/25 22:51 History of Present Illness ED Provider: Cait CARDOSO narrative: The patient is a 45-year-old male with a history of paraplegia. He has sustained a spinal injury in his 20s. He lives independently. She gets around in a wheelchair. He performs self catheterization. He also reports a history of an eating disorder difficulty maintaining his weight. He says that yesterday, on Saturday, he was out with a new acquaintance and he ate very little. He was busy with unusual yesterday. Today he developed nausea and abdominal discomfort. He spent much of the day in a hot shower hoping this would alleviate his symptoms. He says that sometimes he has had problems like this before and hot showers of been helpful. Ultimately he did not feel that he was doing well. He says that he ate very little today. He was concerned that between eating looked very little yesterday and today that he was significantly calorie deficient. Ultimately called 911 and was brought to the hospital. The patient also feels that he has had some hematuria recently. No definite fevers. On arrival in the emergency room he has been given ondansetron prior to my evaluation and he was already feeling somewhat better. Related Data Home Medications ?Medication ?Instructions ?Recorded ?Confirmed buspirone 15 mg tablet 15 mg PO BID 08/09/23 08/09/23 oxcarbazepine 150 mg tablet See Rx Instructions .Route .COMPLEX 08/09/23 08/09/23 fluconazole 150 mg tablet See Rx Instructions .Route .COMPLEX 08/19/23 08/19/23 oxycodone 5 mg capsule 5 mg PO BID PRN Pain 08/19/23 08/19/23 Previous Rx's ?Medication ?Instructions ?Recorded aripiprazole 2 mg tablet 2 mg PO BEDTIME #20 tabs 08/21/23 guanfacine 1 mg tablet,extended 1 - 2 mg (1 - 2 x 1 mg) PO QPM as 08/21/23 release 24 hr directed #30 tabs cefuroxime axetil 250 mg tablet 250 mg PO BID #14 tabs 05/02/25 ondansetron 4 mg disintegrating 4 mg PO Q6H PRN nausea and 05/02/25 tablet vomiting #14 tabs Allergies Allergy/AdvReac Type Severity Reaction Status Date / Time Sulfa (Sulfonamide Allergy Unknown UNKNOWN Verified 05/01/25 20:21 Antibiotics) (SULFA (SULFONAMIDE ANTIBIOTICS)) Review of Systems Review of Systems: Yes all other systems are reviewed and are negative [facility] Past Medical History Medical History (Updated 05/02/25 @ 07:10 by Pia Lowry) Paraplegia Anorexia nervosa, restricting type History of atrial fibrillation Bicuspid aortic valve Fibromyalgia Surgical History History of spinal fusion History of plastic surgery Social History Social History Household Members: Other Household Members Other:: Rooming house,where he rents a room Patient Tobacco Use Status: Former Tobacco user Tobacco use type: Cigarette Substance Use Type: Marijuana Physical Exam ED Vital Signs: Vital Signs - 24 hr 05/01/25 20:24 05/02/25 00:27 05/02/25 02:41 Temperature 98.7 F 98.4 F 99.3 F Pulse Rate 91 86 74 Respiratory Rate 20 16 16 Blood Pressure 134/70 114/59 L 124/52 L Pulse Oximetry 99 98 98 Oxygen Delivery Method Room Air Room Air Room Air 05/02/25 05:05 05/02/25 07:48 Temperature 98.9 F 98.9 F Pulse Rate 117 H 117 H Respiratory Rate 16 16 Blood Pressure 117/60 117/60 Pulse Oximetry 95 95 Oxygen Delivery Method Room Air Room Air BMI result Body Mass Index 15.6 Const Other: The patient is awake and alert. He is a very thin 45-year-old. He has wasted lower extremities. He did not appear toxic or in distress. HENAR Other: The face is symmetrical. Mucous membranes moist. Eyes Other: Pupils are round equal, conjunctivae are clear, extraocular movements intact Neck Neck: Yes normal visual inspection and Yes full ROM Resp Effort & Inspection: normal respiratory effort Auscultation: clear to auscultation bilaterally Cardio Rate: regular rate Rhythm: regular rhythm Heart sounds: S1 normal heart sound present and S2 normal heart sound present GI Other: The abdomen was flat and soft. There did not seem to be any tenderness. The sacral skin in the perianal skin looked healthy. There was a palpable cyst-like swelling to the left of the anus. There was no overlying erythema. The swelling felt mildly fluctuant but not tense. The patient is insensate at this area so there was no tenderness. There was no drainage. Back/Spine/Pelvis Other: The skin of the lower back looks healthy. Skin Other: Overall the skin was pale and dry without signs of breakdown. Neuro Other: The patient is awake and alert with a normal mental status. Cranial nerves are intact. Normal strength and sensation in his upper extremities. He has no strength or sensation in his lower extremities. He has no perianal sensation. Extrem Other: The patient has wasted lower extremities. Medications Administered Discontinued Medications Generic Name Dose Route Start Last Admin Trade Name Freq PRN Reason Stop Dose Admin Droperidol 0.625 mg 05/01/25 23:09 05/01/25 23:21 Droperidol 5 Mg/2 Ml Vial IVPUSH 05/01/25 23:10 0.625 mg ONCE ONE Administration Sodium Chloride 1,000 mls @ 999 mls/hr 05/01/25 22:15 05/02/25 00:24 Ns IV 05/01/25 23:15 Infused .Q1H1M RENO Infusion Lactated Ringer's 1,000 mls @ 999 mls/hr 05/01/25 23:15 05/02/25 01:30 Lr IV 05/02/25 00:15 Infused .Q1H1M RENO Infusion Ceftriaxone Sodium 1 gm/ 50 mls @ 100 mls/hr 05/02/25 01:42 05/02/25 02:43 Sodium Chloride IV 05/02/25 02:11 Infused ONCE ONE Infusion Iohexol 85 ml 05/02/25 00:04 05/02/25 00:11 Iohexol 350 Mg/Ml 100 Ml Infus..Btl IV 05/02/25 00:05 85 ml ONCE ONE Administration Medical Decision Making Medical Decision Making [facility] Narrative: The patient is a paraplegic who also has a history of an eating disorder and trouble with maintaining way who describes having a lot of nausea and vomiting during the day today. He also describes using a hot shower to help manage his symptoms. I felt there was a slight odor of marijuana. I had some impression that the patient might has been experiencing cannabis hyperemesis. His evaluation is complicated by his paraplegia. He self catheterizes. He describes having had some hematuria recently. He has not had any symptoms of a fever. His urinalysis however is concerning for a possible UTI. Additionally, given his complaint of vomiting I obtained a CT scan of the abdomen and pelvis. This showed a large bladder stone which could complicate treatment of any possible urinary tract infection. The patient does not seem septic or toxic. He does not have a fever. His white blood count is slightly elevated at 12.7 but he has a an undetectable C-reactive protein. The CT scan showed a large bladder stone. The CT scan also showed a well-circumscribed fluid collection in the left perianal skin. I examined the patient's perianal area after the CT scan results were available. The patient has significant gluteal wasting. He is insensate in the perianal area. I was able to palpate a fluid collection as described on the CAT scan in the left perianal skin. I felt that this seemed to have a cyst-like feel with the palpation. There was no erythema. Obviously there was no tenderness because the patient is insensate. My overall impression is that this fluid collection is probably not an abscess. I felt that any attempt to obtain fluid in his area could potentially but the patient at risk of an infection and therefore I will defer any possible needle aspiration. Overall the patient felt much better after receiving IV fluids and droperidol and I did not see an indication for hospitalization. He was given a dose of IV ceftriaxone for a possible UTI. He will be discharged with a prescription for cefuroxime. He has a urologist, Dr. Jean at [facility]. I think he should follow up with his urologist to discuss the significance of a bladder stone. I think it would be reasonable for him to see a surgeon as an outpatient to examined the fluid collection in the left perianal area. Otherwise he should follow up with his regular doctor. He was also advised to try to avoid marijuana. Lab Data 05/01/25 20:34 05/01/25 20:34 Labs: Lab Results 05/01/25 05/01/25 Range/Units 20:34 21:00 WBC 12.7 H (4.8-10.8) X10*3/uL RBC 4.62 (4.60-5.80) X10*6/uL Hgb 14.9 (14.0-18.0) g/dl Hct 44.1 (42.0-52.0) % MCV 95.5 (80.0-98.0) fL MCH 32.3 (27.0-33.0) pg MCHC 33.8 (31.0-36.0) g/dl RDW 12.5 (11.0-16.0) % Plt Count 191 (160-400) X10*3/uL MPV 11.1 (9.4-12.4) fL Immature Gran % (Auto) 0.5 H (0.0-0.4) % Neut % (Auto) 92.2 H (45-73) % Lymph % (Auto) 4.4 L (20-40) % [place] % (Auto) 2.7 (2-11) % Eos % (Auto) 0.0 (0-4) % Baso % (Auto) 0.2 (0-2) % Lymph # (Auto) 0.6 L (1.2-4.9) X10*3/uL [place] # (Auto) 0.3 (0.1-1.2) X10*3/uL Eos # (Auto) 0.0 (0.0-0.4) X10*3/uL Baso # (Auto) 0.0 (0.0-0.2) X10*3/uL Abs Immat Gran (auto) 0.06 H (0.00-0.03) X10*3/uL Absolute Neuts (auto) 11.7 H (2.0-8.3) x10*3/uL Absolute Nucleated RBC 0.000 (0.0-0.012) X10*3/uL Nucleated RBC % (auto) 0.0 (0.0-0.2) /100WBC Smear Tech's Comments VERIFIED Sodium 140 (135-145) mmol/L Potassium 4.4 (3.3-5.1) mmol/L Chloride 107 (96-108) mmol/L Carbon Dioxide 21 L (22-29) mmol/L Anion Gap 16 (12-20) BUN 17 H (9-16) mg/dL Creatinine 0.71 (0.5-1.4) mg/dL Estim Creat Clear Calc 100.2 Estimated GFR > 60 Random Glucose 185 H (60-115) mg/dL Calcium 10.3 H D (8.4-10.2) mg/dL Total Bilirubin 0.8 (0.0-1.0) mg/dL AST 51 H (5-37) U/L ALT 41 H (0-40) U/L Alkaline Phosphatase 68 (39-117) U/L C-Reactive Protein < 0.10 (< or = 0.50) mg/dL Total Protein 7.6 (6.5-8.0) g/dL Albumin 5.1 H (3.5-5.0) g/dL Lipase 11 (8-78) U/L Urine Color [place] Urine Appearance Cloudy Urine pH 6.0 (5.0-9.0) Ur Specific [place] >= 1.030 H (1.005-1.025) Urine Protein 300 (3+) H (Neg-Trace) mg/dL Urine Glucose (UA) Negative (Negative) mg/dL Urine Ketones >=80 (Negative) mg/dL Urine Blood Large (3+) H (Negative) Urine Nitrite Positive H (Negative) Ur Leukocyte Esterase Small (1+) H (Negative) Urine RBC >20 H (0-2) /HPF Urine WBC >50 H (0-5) /HPF Ur Squamous Epith Cells 3-5 (0-2) /HPF Urine Bacteria 4+ (None Seen) Hyaline Casts 0-2 (0-2) /LPF Discharge Plan Discharge Clinical Impression: Vomiting, Urinary tract infection, Perianal cyst, Paraplegia Patient Disposition: Home, Self-Care Additional Instructions: Please try to rest and take it easy today and eat whatever you feel you are able to eat and drink today. Your urine suggests the possibility of a urinary tract infection. You has been started on antibiotics. A prescription for additional antibiotics has been sent to your pharmacy. Please take the 1st dose of the antibiotic, cefuroxime, this evening, on Saturday evening. A prescription for the antinausea medication ondansetron (also known as Zofran) has also been sent to your pharmacy. The CAT scan of your abdomen showed the presence of a large stone in your bladder. Having a stone in your bladder associated with a a bladder infection can be significant. This will need to be discussed with the your urologist. Please contact Dr. Jean's office on Saturday for follow up and to discuss this. The CAT scan also showed an area of swelling in the skin near the left side of your buttocks near the anus. My impression is that this is probably not an infected abscess. However it would be good for a surgeon to take a look at this. Please contact the General surgery office on Saturday for follow up. Also plan on following up with your regular doctor. Please be aware that it is becoming more apparent that marijuana can cause significant episodes of vomiting. Please try to reduce marijuana use. Return to the emergency room if you feel significantly worse. Prescriptions: New cefuroxime axetil 250 mg tablet 250 mg PO BID Qty: 14 0RF ondansetron 4 mg tablet,disintegrating 4 mg PO Q6H PRN (Reason: nausea and vomiting) Qty: 14 0RF No Action oxcarbazepine 150 mg Tablet See Rx Instructions .ROUTE .COMPLEX Rx Instructions: Take two tabs in the morning and 1 tab in the evening. buspirone 15 mg Tablet 15 mg PO BID fluconazole 150 mg Tablet See Rx Instructions .ROUTE .COMPLEX Rx Instructions: 150 mg every other day for 14 days. Filled 08/15/23. #7 oxycodone 5 mg Capsule 5 mg PO BID PRN (Reason: Pain) Rx Instructions: Filled 08/17/23 #10 tabs. aripiprazole 2 mg tablet 2 mg PO BEDTIME Qty: 20 0RF guanfacine 1 mg tablet extended release 24 hr 1 - 2 mg PO QPM Qty: 30 0RF Referrals: Jesse Longo MD [Primary Care Provider, Family Practice] Michaela Jean MD [Physician, Urology] [facility] [Provider Group, General Surgery] Interventions: ED Discharge Assessment Last Done: 05/02/25 07:48 Discharge Date/Time: 05/02/25 08:13 Print Language: Unable To Collect
[2025-05-02] MEDS: iohexoL 350 MG/ML 100 ML INFUS..BTL 85 ML IV (00:11)
[2025-05-02] MEDS: Lactated Ringers 1,000 ML 999 ML IV (00:25)
[2025-05-02 00:27] VITALS: BP 114/59; PULSE 86; RESP 16; TEMP 36.9; O2SAT 98
[2025-05-02 02:41] VITALS: BP 124/52; PULSE 74; RESP 16; TEMP 37.4; O2SAT 98
--- NOTE | 2025-05-02 03:38 | PC.NURSE ---
Pt able to eat crackers and orlando remigio without N/V.
[2025-05-02 05:05] VITALS: BP 117/60; PULSE 117; RESP 16; TEMP 37.2; O2SAT 95
[2025-05-02 07:48] VITALS: BP 117/60; PULSE 117; RESP 16; TEMP 37.2; O2SAT 95
== END 2025-05-02 08:13 | disposition home or self-care (01) ==
PROVIDERS: Emergency Provider Emergency Medicine; PCP Family Medicine
DX: N39.0 Urinary tract infection, site not specified (principal); R11.2 Nausea with vomiting, unspecified; R10.22 Pelvic and perineal pain left side; G82.20 Paraplegia, unspecified; K62.89 Other specified diseases of anus and rectum; R94.31 Abnormal electrocardiogram [ECG] [EKG]; Z79.899 Other long term (current) drug therapy; Z87.891 Personal history of nicotine dependence
CPT/HCPCS: 36415; 74177; 80053; 81001; 83690; 85025; 86140; 87086; 87088; 87186; 93005; 96361; 96365; 96375; 99285; J0696; J1790; J7120; Q9967

== ENCOUNTER → 2025-05-01 22:11 | Outpatient (BNV) | payer OTHER, SELFPAY | PROVIDERS: Emergency Provider Emergency Medicine; PCP Family Medicine; Visit Provider Internal Medicine | DX: R94.31 Abnormal electrocardiogram [ECG] [EKG] (principal); Z13.6 Encounter for screening for cardiovascular disorders | CPT/HCPCS: 93010 ==

== ENCOUNTER → 2025-05-01 23:10 | Outpatient (BNV) | payer OTHER, SELFPAY | PROVIDERS: Emergency Provider Emergency Medicine; PCP Family Medicine; Visit Provider General Practice | DX: N32.89 Other specified disorders of bladder (principal); K61.0 Anal abscess | CPT/HCPCS: 74177 ==

== ENCOUNTER 2025-05-10 12:10 | Emergency (ER) | payer OTHER, SELFPAY ==
--- NOTE | ~2025-05-10 | XR_ITS ---
EXAMINATION: XR CHEST CLINICAL INFORMATION: SOB. pneumonia COMPARISON: None available. TECHNIQUE: Frontal view of the chest was obtained. FINDINGS: Well inflated lungs. No consolidation or pulmonary edema. No pleural effusion or pneumothorax. Cardiac and mediastinal contours are normal. Surgical hardware the lower thoracic spine. XR/XR chest 1V IMPRESSION: Well inflated lungs. No evidence of pneumonia. Electronically signed by: Mehreen Avila MD 05/10/2025 02:11 PM EST
[2025-05-10 12:49] VITALS: BP 144/82; PULSE 79; RESP 16; TEMP 36.6; O2SAT 99; BMI 14.3
--- NOTE | 2025-05-10 13:03 | ED.GENADULT ---
HPI - General Adult General Chief complaint: Nausea/Vomiting/Diarrhea Stated complaint: vomitting, dehydrated Time Seen by Provider: 05/10/25 16:18 Source: patient and EMS Mode of arrival: EMS Limitations: no limitations History of Present Illness ED Provider: HPI narrative: 45-year-old male, quadriplegia, recently treated for UTI, was prescribed antibiotics that she finished but continued to feel unwell, cultures came back positive for ESBL and VRE, he was prescribed oral Macrobid that he has not been able to take, presenting, nausea, diaphoretic. Denies any ulcerations, he has straight catheterize himself, no respiratory symptoms subjective chills. Related Data Home Medications ?Medication ?Instructions ?Recorded ?Confirmed buspirone 15 mg tablet 15 mg PO BID 08/09/23 08/09/23 oxcarbazepine 150 mg tablet See Rx Instructions .Route .COMPLEX 08/09/23 08/09/23 fluconazole 150 mg tablet See Rx Instructions .Route .COMPLEX 08/19/23 08/19/23 oxycodone 5 mg capsule 5 mg PO BID PRN Pain 08/19/23 08/19/23 Previous Rx's ?Medication ?Instructions ?Recorded aripiprazole 2 mg tablet 2 mg PO BEDTIME #20 tabs 08/21/23 guanfacine 1 mg tablet,extended 1 - 2 mg (1 - 2 x 1 mg) PO QPM as 08/21/23 release 24 hr directed #30 tabs cefuroxime axetil 250 mg tablet 250 mg PO BID #14 tabs 05/02/25 ondansetron 4 mg disintegrating 4 mg PO Q6H PRN nausea and 05/02/25 tablet vomiting #14 tabs nitrofurantoin 100 mg PO Q12H 7 days #14 caps 05/08/25 monohydrate/macrocrystals 100 mg capsule (Macrobid) fosfomycin tromethamine 3 gram 1 packet PO Q3D 2 doses #2 ea 05/10/25 oral packet Allergies Allergy/AdvReac Type Severity Reaction Status Date / Time Sulfa (Sulfonamide Allergy Unknown UNKNOWN Verified 05/01/25 20:21 Antibiotics) (SULFA (SULFONAMIDE ANTIBIOTICS)) nitrofurantoin Allergy Nausea and Verified 05/10/25 13:01 Vomiting Review of Systems Constitutional: Constitutional: Reports as per [facility] Past Medical History Medical History (Updated 05/11/25 @ 00:00 by Ollie Crawley) Paraplegia Anorexia nervosa, restricting type History of atrial fibrillation Bicuspid aortic valve Fibromyalgia Surgical History History of spinal fusion History of plastic surgery Social History Social History Household Members: Other Household Members Other:: Rooming house,where he rents a room Patient Tobacco Use Status: Former Tobacco user Tobacco use type: Cigarette Smoked in Last 30 Days: No Use of substances other than those prescribed or required for medical reasons: Yes Substance Use Type: Marijuana Substance Use Frequency: Daily Advance Directives: No Advance Directives Information Provided: No Do you have a plan to hurt others: No Plan Physical Exam ED Exam Exam: ?General: ??looks age appropriate ?CV: RRR, no obvious murmurs appreciated ?Resp: ?No wheezing rales rhonchi no stridor moving air well Abd: ?Bowel sounds are present, no tenderness no rebound no rigidity MSK: Contracted decreased muscle mass bilateral lower extremities Skin: Warm, dry, intact, ?Neuro: ?Alert and oriented x3, cranial nerves 2-12 intact Vital Signs: Vital Signs - 24 hr 05/10/25 12:49 05/10/25 15:43 05/10/25 19:08 Temperature 97.8 F 98.8 F Pulse Rate 79 74 85 Respiratory Rate 16 18 18 Blood Pressure 144/82 H 146/76 H 135/63 Pulse Oximetry 99 98 100 Oxygen Delivery Method Room Air Room Air BMI result Body Mass Index 14.3 Course Course Course Narrative: RME: Patient is recently being treated for UTI presents to ED for abdominal pain, nausea, vomiting, coughing low back pain and feeling sicker. Patient states vomiting antibiotics. Labs ordered. Medications Administered Discontinued Medications Generic Name Dose Route Start Last Admin Trade Name Freq PRN Reason Stop Dose Admin Al Hydroxide/Mg Hydroxide 15 ml 05/10/25 18:44 05/10/25 19:06 Magnesium Hydrox/Alum Hydrox 30 Ml Oral.Susp PO 05/10/25 18:45 15 ml ONCE ONE Administration Diazepam 5 mg 05/10/25 17:04 05/10/25 17:29 Diazepam 10 Mg/2 Ml Cartridge IVPUSH 05/10/25 17:05 5 mg STAT STA Administration Droperidol 0.625 mg 05/10/25 18:43 05/10/25 19:06 Droperidol 5 Mg/2 Ml Vial IVPUSH 05/10/25 18:44 0.625 mg ONCE ONE Administration Famotidine 20 mg 05/10/25 17:04 05/10/25 17:29 Famotidine/Pf 20 Mg/2 Ml Vial IVPUSH 05/10/25 17:05 20 mg ONCE ONE Administration Sodium Chloride 1,000 mls @ 999 mls/hr 05/10/25 17:15 05/10/25 19:32 Ns IV 05/10/25 18:15 Infused .Q1H1M RENO Infusion Ondansetron HCl 4 mg 05/10/25 17:04 05/10/25 17:29 Ondansetron Hcl 4 Mg/2 Ml Vial IVPUSH 05/10/25 17:05 4 mg ONCE ONE Administration Medical Decision Making Medical Decision Making MDM Narrative: 5:01 PM 05/10/2025 (Dr. Des Solorzano): Patient is presenting with continued general malaise, he is not able to take oral nitrofurantoin, fairly diaphoretic during our conversation, blood work is reassuring and urine with a trace of bacteria, but the antibiotic that he was prescribed and finish the full course did not cover the ESBL and VRE that the culture came back positive, the only thing that can be provided is essentially ampicillin and gentamicin, I we will reach out to ID to see if they feel before oral fosfomycin we will be sufficient x1 dose, patient is paraplegic, high-risk, unable to tolerate p.o. on outpatient basis and otherwise would need to be admitted. 6:42 PM 05/10/2025 (Dr. Des Solorzano): Doctors your work did indicate that it can use 3 g of fosfomycin now and then repeat in 3 days, however patient is nauseous again not sure he is going to be able to tolerate antibiotics right now, he did have recently a CT of the abdomen which was negative for any obstructive patterns, and he has had no abdominal pain except for epigastric pain but that is the response he has when he takes antibiotics and he took Macrobid yesterday evening and today in the morning and states this is the side effect. Differential Diagnosis Differential Diagnoses: The differential diagnosis associated with the presentation includes (UTI, pyelonephritis, sepsis, dehydration, bacteremia) Admission/Observation Consideration of admission/observation: Escalation of care including admission/observation considered Consult Healthcare Provider Management of the patient was discussed with: Assembler Tester (Dr. Azucena MOHR) Lab Data MDM Lab Attestation statement: I reviewed the patient's lab results. 05/10/25 13:43 05/10/25 13:47 Labs: Lab Results 05/10/25 05/10/25 05/10/25 Range/Units 13:43 13:44 13:47 WBC 6.9 (4.8-10.8) X10*3/uL RBC 4.66 (4.60-5.80) X10*6/uL Hgb 15.6 (14.0-18.0) g/dl Hct 42.2 (42.0-52.0) % MCV 90.6 (80.0-98.0) fL MCH 33.5 H (27.0-33.0) pg MCHC 37.0 H (31.0-36.0) g/dl RDW 11.9 (11.0-16.0) % Plt Count 265 D (160-400) X10*3/uL MPV 9.8 (9.4-12.4) fL Immature Gran % (Auto) 0.4 (0.0-0.4) % Neut % (Auto) 85.7 H (45-73) % Lymph % (Auto) 10.4 L (20-40) % Duval % (Auto) 3.2 (2-11) % Eos % (Auto) 0.0 (0-4) % Baso % (Auto) 0.3 (0-2) % Lymph # (Auto) 0.7 L (1.2-4.9) X10*3/uL [place] # (Auto) 0.2 (0.1-1.2) X10*3/uL Eos # (Auto) 0.0 (0.0-0.4) X10*3/uL Baso # (Auto) 0.0 (0.0-0.2) X10*3/uL Abs Immat Gran (auto) 0.03 (0.00-0.03) X10*3/uL Absolute Neuts (auto) 5.9 (2.0-8.3) x10*3/uL Absolute Nucleated RBC 0.000 (0.0-0.012) X10*3/uL Nucleated RBC % (auto) 0.0 (0.0-0.2) /100WBC Sodium 136 (135-145) mmol/L Potassium 3.9 (3.3-5.1) mmol/L Chloride 100 (96-108) mmol/L Carbon Dioxide 25 (22-29) mmol/L Anion Gap 15 (12-20) BUN 14 (9-16) mg/dL Creatinine 0.66 (0.5-1.4) mg/dL Estim Creat Clear Calc 97.6 Estimated GFR > 60 Random Glucose 135 H (60-115) mg/dL Lactic Acid 1.7 (0.5-2.0) mmol/L Calcium 9.6 D (8.4-10.2) mg/dL Magnesium 2.1 (1.6-2.6) mg/dL Total Bilirubin 0.7 (0.0-1.0) mg/dL AST 22 (5-37) U/L ALT 27 (0-40) U/L Alkaline Phosphatase 66 (39-117) U/L Total Protein 7.1 (6.5-8.0) g/dL Albumin 4.8 (3.5-5.0) g/dL Urine Color Urine Appearance Urine pH (5.0-9.0) Ur Specific [place] (1.005-1.025) Urine Protein (Neg-Trace) mg/dL Urine Glucose (UA) (Negative) mg/dL Urine Ketones (Negative) mg/dL Urine Blood (Negative) Urine Nitrite (Negative) Ur Leukocyte Esterase (Negative) Urine RBC (0-2) /HPF Urine WBC (0-5) /HPF Ur Squamous Epith Cells (0-2) /HPF Urine Bacteria (None Seen) Hyaline Casts (0-2) /LPF Influenza Type A (PCR) NEGATIVE (Negative) Influenza Type B (PCR) NEGATIVE (Negative) RSV RNA Qual (PCR) NEGATIVE (Negative) SARS-CoV-2 RNA (RT-PCR) NEGATIVE (Negative) 05/10/25 Range/Units 13:51 WBC (4.8-10.8) X10*3/uL RBC (4.60-5.80) X10*6/uL Hgb (14.0-18.0) g/dl Hct (42.0-52.0) % MCV (80.0-98.0) fL MCH (27.0-33.0) pg MCHC (31.0-36.0) g/dl RDW (11.0-16.0) % Plt Count (160-400) X10*3/uL MPV (9.4-12.4) fL Immature Gran % (Auto) (0.0-0.4) % Neut % (Auto) (45-73) % Lymph % (Auto) (20-40) % [place] % (Auto) (2-11) % Eos % (Auto) (0-4) % Baso % (Auto) (0-2) % Lymph # (Auto) (1.2-4.9) X10*3/uL [place] # (Auto) (0.1-1.2) X10*3/uL Eos # (Auto) (0.0-0.4) X10*3/uL Baso # (Auto) (0.0-0.2) X10*3/uL Abs Immat Gran (auto) (0.00-0.03) X10*3/uL Absolute Neuts (auto) (2.0-8.3) x10*3/uL Absolute Nucleated RBC (0.0-0.012) X10*3/uL Nucleated RBC % (auto) (0.0-0.2) /100WBC Sodium (135-145) mmol/L Potassium (3.3-5.1) mmol/L Chloride (96-108) mmol/L Carbon Dioxide (22-29) mmol/L Anion Gap (12-20) BUN (9-16) mg/dL Creatinine (0.5-1.4) mg/dL Estim Creat Clear Calc Estimated GFR Random Glucose (60-115) mg/dL Lactic Acid (0.5-2.0) mmol/L Calcium (8.4-10.2) mg/dL Magnesium (1.6-2.6) mg/dL Total Bilirubin (0.0-1.0) mg/dL AST (5-37) U/L ALT (0-40) U/L Alkaline Phosphatase (39-117) U/L Total Protein (6.5-8.0) g/dL Albumin (3.5-5.0) g/dL Urine Color Dark Yellow Urine Appearance Cloudy Urine pH 7.5 (5.0-9.0) Ur Specific [place] 1.020 (1.005-1.025) Urine Protein 100 (2+) H (Neg-Trace) mg/dL Urine Glucose (UA) Negative (Negative) mg/dL Urine Ketones 40 (Negative) mg/dL Urine Blood Negative (Negative) Urine Nitrite Negative (Negative) Ur Leukocyte Esterase Moderate (2+) H (Negative) Urine RBC 0-2 (0-2) /HPF Urine WBC >50 H (0-5) /HPF Ur Squamous Epith Cells 3-5 (0-2) /HPF Urine Bacteria Trace (None Seen) Hyaline Casts 0-2 (0-2) /LPF Influenza Type A (PCR) (Negative) Influenza Type B (PCR) (Negative) RSV RNA Qual (PCR) (Negative) SARS-CoV-2 RNA (RT-PCR) (Negative) Critical Care Time Critical Care Time Critical Care Time: Yes Total Critical Care Time: 45 Attestation: Time is exclusive of separately billable procedures. Time includes: direct patient care, patient reassessment, coordination of patient care, interpretation of data (laboratory data, pulse oximetry, arterial blood gases and chest xrays), review of patient's medical records, medical consultation and documentation of patient care. Procedures excluded from critical care time: central intravenous line placement and electrocardiography. Discharge Plan Discharge Clinical Impression: Drug-induced nausea and vomiting, UTI (urinary tract infection) due to Enterococcus Patient Disposition: Home, Self-Care Additional Instructions: Take 1 dose tomorrow wait 3 days and then take another dose, based on your urine cultures this has been discussed with our infectious disease provider and will cover your current infection I recommend pretreating with Zofran a few hours before and taking this medication with food If you are not able to tolerate this medication or for some reason you insurance does not cover it my recommendation would be to come back to emergency department for admission and IV antibiotics, as we have discussed the IV antibiotics are quite heavy weight , and would include gentamicin and ampicillin, I am hoping that you will be able to take this medication without any issues. You received fluids, medications for nausea, you have had no fevers, as discussed your blood work has been reassuring and there was even some improvement in your bacteria count on urinalysis though we know that you need a different type of antibiotics to fully cover the bacteria that you grew out Prescriptions: New fosfomycin tromethamine 3 gram packet 1 packet PO Q3D Qty: 2 0RF Rx Instructions: take one dose, then three days later take another dose No Action oxcarbazepine 150 mg Tablet See Rx Instructions .ROUTE .COMPLEX Rx Instructions: Take two tabs in the morning and 1 tab in the evening. buspirone 15 mg Tablet 15 mg PO BID fluconazole 150 mg Tablet See Rx Instructions .ROUTE .COMPLEX Rx Instructions: 150 mg every other day for 14 days. Filled 08/15/23. #7 oxycodone 5 mg Capsule 5 mg PO BID PRN (Reason: Pain) Rx Instructions: Filled 08/17/23 #10 tabs. aripiprazole 2 mg tablet 2 mg PO BEDTIME Qty: 20 0RF guanfacine 1 mg tablet extended release 24 hr 1 - 2 mg PO QPM Qty: 30 0RF cefuroxime axetil 250 mg tablet 250 mg PO BID Qty: 14 0RF ondansetron 4 mg tablet,disintegrating 4 mg PO Q6H PRN (Reason: nausea and vomiting) Qty: 14 0RF nitrofurantoin monohyd/m-cryst [Macrobid] 100 mg capsule 100 mg PO Q12H 7 Days Qty: 14 0RF Rx Instructions: must administer with a meal/food Interventions: ED Discharge Assessment Last Done: 05/10/25 20:54 Discharge Date/Time: 05/10/25 20:55 Print Language: Persian
[2025-05-10 13:57] LABS: MANUAL DIFF FLAG NO
[2025-05-10 13:58] LABS: Appearance Urine Cloudy; Glucose Urine UA Negative (Negative); PH 7.5 (5.0-9.0); Specific Gravity - Urine 1.020 (1.005-1.025); UMIC TRIGGER UACC YES
[2025-05-10 14:00] LABS: Hematocrit 42.2 % (42.0-52.0); Hemoglobin 15.6 g/dl (14.0-18.0); Imm Gran Abs Auto 0.03 X10*3/uL (0.00-0.03); Imm Gran Pct Auto 0.4 % (0.0-0.4); Lymphocytes Absolute Auto 0.7 X10*3/uL (1.2-4.9); Mean Corpuscular HGB Conc 37.0 g/dl (31.0-36.0); Mean Corpuscular Hemoglobin 33.5 pg (27.0-33.0); Mean Corpuscular Volume 90.6 fL (80.0-98.0); NRBC Abs Auto 0.000 X10*3/uL (0.0-0.012); NRBC Pct Auto 0.0 /100WBC (0.0-0.2); Platelet Count 265 X10*3/uL (160-400); Red Blood Count 4.66 X10*6/uL (4.60-5.80); White Blood Count 6.9 X10*3/uL (4.8-10.8)
[2025-05-10 14:08] LABS: UACC Culture Trigger YES
[2025-05-10 14:18] LABS: Alanine Aminotransferase 27 U/L (0-40); Albumin Level 4.8 g/dL (3.5-5.0); Alkaline Phosphatase 66 U/L (39-117); Anion Gap 15 (12-20); Aspartate Amino Transferase 22 U/L (5-37); Blood Urea Nitrogen 14 mg/dL (9-16); Calcium 9.6 mg/dL (8.4-10.2); Carbon Dioxide 25 mmol/L (22-29); Chloride 100 mmol/L (96-108); Creatinine Clr Calc Pharmacy 97.6; Estimated Glomerular Filt Rate > 60; Magnesium 2.1 mg/dL (1.6-2.6); Potassium 3.9 mmol/L (3.3-5.1); Sodium 136 mmol/L (135-145); Total Protein 7.1 g/dL (6.5-8.0)
[2025-05-10 14:36] LABS: Resp Syncy Virus RNA Qual PCR NEGATIVE (Negative); SARS COV2 PCR INHOUSE NEGATIVE (Negative)
[2025-05-10 15:43] VITALS: BP 146/76; PULSE 74; RESP 18; TEMP 37.1; O2SAT 98
[2025-05-10] MEDS: diazePAM 10 MG/2 ML CARTRIDGE 5 MG IVPUSH (17:29)
[2025-05-10] MEDS: Magnesium Hydrox/Alum Hydrox 30 ML ORAL.SUSP 15 ML PO (19:06)
[2025-05-10 19:08] VITALS: BP 135/63; PULSE 85; RESP 18; O2SAT 100
--- NOTE | 2025-05-10 19:08 | PC.NURSE ---
pt feels as if he is unable to drink the maalox at this time, primary rn oncoming made aware
[2025-05-10 20:54] VITALS: BP 135/63; PULSE 85; RESP 18; TEMP 36.7; O2SAT 100
--- OUTSIDE RECORDS SUMMARY | 2025-05-10 21:52 | XMS_ITS | Encounter Summary ---
Author Organization [facility] Address [address] [place] [address] Phone Care Team Providers Care Program Instructor Name Role Phone Jesse Longo MD, MPH Primary Care Provider + Raghavendra Mcknight AUTOMOTIVE METALSMITH Unavailable Reason for Referral * Outpatient Procedure - Closed Specialty Diagnoses / Procedures Referred By Ludmila ivy Referred To Contact Radiology Diagnoses Abdominal pain, unspecified abdominal location Procedures NM Gastric Emptying Tim Montes De Oca MD [address] [place] [address] Phone: tel: fax: [email or web address] Referral ID Status Reason Start Date Expiration Date Visits Re quested Visits Authorized [id number] Closed 10/29/2023 10/28/2024 1 1 Encounter Details Date Type Department Care Team (Latest Contact Info) Description 10/29/2023 Transcribe Orders Virtual Department [address] [place] [address] Tim Montes De Oca MD [address] [address] [email or web address] Abdominal pain, unspecified abdominal location (Primary Dx) [...] as of this encounter Plan of Treatment Upcoming Encounters Date Type Department Care Team (Latest Contact Info) Description 06/08/2025 Procedure Pass OR Admitting Dept - Virtual Department [address] [place] [address] 06/08/2025 10:06 AM EST Hospital Encounter OR Admitting Dept - Virtual Department [address] [place] [address] Milind Huston MD [address] [place] [address], [address] [place] [address] [email or web address] 06/08/2025 10:06 AM EST - 06/08/2025 11:12 AM EST Surgery OR Admitting Dept - Virtual Department [address] [place] [address] Milind Huston MD [address] [place] [address], [address] [place] [address] [email or web address] LASER LITHOTRIPSY BLADDER STONE Scheduled Procedures Name Priority Associated Diagnoses Date/Ti nv LASER LITHOTRIPSY BLADDER STONE BLADDER STONES 06/08/2025 10:06 AM EST documented as of this encounter Results * [...] or greater of the standard meal (PMID: 40089177) and approximate the normative emptying values of EnsurePlus (PMID: 63727743). Procedure Note Ariane Beckham MD - 11/11/2023 [...] 50% or greater of the standard meal(PMID: 80133461) and approximate the normative emptying values of[facility] (PMID: [id number]). IMPRESSION: Gastric emptying study within normal limits. Tim Montes De Oca MD IMG [place] ABDOMEN Final Resu lt documented in this encounter Visit Diagnoses Diagnosis Abdominal pain, unspecified abdominal location- Primary Abdominal pain, unspecified abdominal location documented in this encounter Additional Health Concerns Assessment Noted Time PHQ-9 Depression Total Score: 19 024 1:00 PM EDT PHQ-2 Depression Total Score: 5 09/16/19 24 1:00 PM EDT documented as of this encounter Care Teams Program Instructor Relationship Specialty Start Date End Date Jesse Longo MD, MPH [address] [place] [address] [email or web address] PCP - General Family Medicine 01/09/18 Raghavendra Mcknight LICSW [address] [place] [address] [email or web address] PHCM Non Destructive Testing Scientist 09/02/23 07/09/24 documented as of this encounter Additional Source Comments The information contained in this document represents components of the legal health record. It is not the complete legal health record.[facility]
--- OUTSIDE RECORDS SUMMARY | 2025-05-10 21:52 | XMS_ITS | Encounter Summary ---
Author Organization [facility] Address [address] [address] Phone Care Team Providers Care Copper Plate Lithographer Name Role Phone Jesse Longo MD, MPH Primary Care Provider + Raghavendra Mcknight CONCRETE ROD BUSTER Unavailable [phone] Encounter Details Date Type Department Care Team (Late st Contact Info) Description 10/22/2023 Procedure Pass [facility] Endoscopy Admitting Dept Virtual Department [address] [place] [address] Social History Tobacco Use Types Packs/Day Years [...] Pass OR Admitting Dept - Virtual Department [address] [place] [address] 06/08/2025 10:06 AM EST Hospital Encounter OR Admitting Dept - Virtual Department [address] [place] [address] Milind Huston MD [address] [place] [address], [address] [place] [address] [email or web address] 06/08/2025 10:06 AM EST - 06/08/2025 11:12 AM EST Surgery OR Admitting Dept - Virtual Department [address] [place] [address] Milind Huston MD [address] [place] [address], [address] [place] [address] [email or web address] LASER LITHOTRIPSY BLADDER STONE Scheduled Procedures Name Priority Associated Diagnoses Date/Ti va LASER LITHOTRIPSY BLADDER STONE BLADDER STONES 06/08/2025 10:06 AM EST documented as of this encounter Visit Diagnoses Not on filedocumented in this encounter Additional Health Concerns Assessment Noted Time PHQ-9 Depression Total Score: 19 024 1:00 PM EDT PHQ-2 Depression Total Score: 5 09/16/19 24 1:00 PM EDT documented as of this encounter Care Teams Copper Plate Lithographer Relationship Specialty Start Date End Date Jesse Longo MD, MPH [address] [place] [address] PCP - General Family Medicine 01/09/18 Raghavendra Mcknight LICSW [address] [place] [address] [email or web address] PHCM Sweet Goods Machine Operator 09/02/23 07/09/24 documented as of this encounter Additional Source Comments The information contained in this document represents components of the legal health record. It is not the complete legal health record.[facility]
--- OUTSIDE RECORDS SUMMARY | 2025-05-10 21:52 | XMS_ITS | Clinical Summary ---
Author Organization [facility] Address [address] [place] [address] Phone Care Team Providers Care Data Processing Supervisor Name Role Phone Jesse Lonog MD, MPH Primary Care Provider + Allergies [...] - 04/07/2025 11:59 PM EST Hospital Encounter [facility], [address] [address] Michaela Jean MD Discharge Disposition: Home or Self Care 03/08/2025 Transcribe Orders Virtual Department [address] [place] [address] Michaela Jean MD Flaccid neurogenic bladder (Primary [...] 10/21/2023 2:20 PM EDT Plan of Treatment Upcoming Encounters Date Type Department Care Team (Latest Contact Info) Description 06/08/2025 Procedure Pass OR Admitting Dept - Virtual Department [address] [place] [address] 06/08/2025 10:06 AM EST Hospital Encounter OR Admitting Dept - Virtual Department [address] [place] [address] Milind Huston MD [address] [place] [address], [address] [place] [phone] [email or web address] 06/08/2025 10:06 AM EST - 06/08/2025 11:12 AM EST Surgery OR Admitting Dept - Virtual Department [address] [place] [address] Milind Huston MD [address] [place] [address], [address] [place] [address] [email or web address] LASER LITHOTRIPSY BLADDER STONE Scheduled Procedures Name Priority Associated Diagnoses Date/Ti me LASER LITHOTRIPSY BLADDER STONE BLADDER STONES 06/08/2025 10:06 AM EST Health Maintenance Due Date Last Done Comments [...] 09/16/2023 INFLUENZA VACCINE (#1) 2025 COVID-19 VACCINE (2024-2 6 season) 2025 09/29/2020 HEPATITIS A VACCINES [...] on patient's age to complete this topic Goals Goal Patient Goal Type Associated Problems Recent Progress Patient-Stated? Author Autogenerat ed Goal Care Plan Autogenerated Problem No Anais [employer] Implanted Type Area Bobbin Marker Device Identifier Shelf Expiration Date Model / [...] clinician's provided indication for this examination in Epic: Outside Radiology Order TECHNIQUE: Kidney and bladder [...] clinician's provided indication for this examination in Epic:Outside Radiology Order TECHNIQUE: Kidney and bladder ultrasound. [...] stone within the bladder. Michaela Jean MD [facility] Final Re sult from Last 3 Months Additional Health Concerns Active Problems Noted Date Diagnosed Date Autogenerated Problem 05/10/2025 [facility] ACO UNITED POS [facility] ACO [place] [employer] [facility] [place] POS [facility] [place]W[employer] [facility] Care Teams Data Processing Supervisor Relationship Specialty Start Date End Date Jesse Longo MD, MPH [address] [place] [address] [email or web address] PCP - General Family Medicine 01/09/18 Additional Source Comments The information contained in this document represents components of the legal health record. It is not the complete legal health record.[facility]
== END 2025-05-10 20:55 | disposition home or self-care (01) ==
PROVIDERS: Physician Assistant; Emergency Provider Emergency Medicine; PCP Family Medicine
DX: R11.2 Nausea with vomiting, unspecified (principal); E86.0 Dehydration; N39.0 Urinary tract infection, site not specified; B95.2 Enterococcus as the cause of diseases classified elsewhere; T37.8X5A Adverse effect of other specified systemic anti-infectives and antiparasitics, initial encounter; Y92.89 Other specified places as the place of occurrence of the external cause
CPT/HCPCS: 71045; 80053; 81001; 83605; 83735; 85025; 87040; 87086; 87637; 96361; 96374; 96375; 99284; 99285; J1308; J1790; J2405; J3360

== ENCOUNTER → 2025-05-10 13:02 | Outpatient (BNV) | payer OTHER, SELFPAY | PROVIDERS: PCP Family Medicine; Visit Provider Radiology Diagnostic Radiology | DX: R06.02 Shortness of breath (principal) | CPT/HCPCS: 71045 ==

== ENCOUNTER 2025-05-31 14:53 | Outpatient (AMB) | payer OTHER, SELFPAY ==
--- NOTE | 2025-05-31 15:11 | MHC.OFFVIS ---
Vital Signs 05/31/25 15:16 Height 6 ft 1.62 in Weight 109 lb 15.994 oz BMI 14.3 Intake Visit Reasons: perianal cyst Intake Note: Patient presents for [facility] ER follow-up for perianal cyst. Pt c/o; reports occasional blood in stool, reports he thinks he had a colonsocopy in the past but is not sure where it was done. Technician Test Systems Required: No Accompanied by: Self / Same As Patient Allergies Sulfa (Sulfonamide Antibiotics) (SULFA (SULFONAMIDE ANTIBIOTICS)) Allergy (Unknown, Verified 05/31/25 15:18) UNKNOWN nitrofurantoin Allergy (Verified 05/31/25 15:18) Nausea and Vomiting Medication List - Last Reconciled 05/31/25 by Chucky Beverly MD aripiprazole 2 mg PO BEDTIME buspirone 15 mg PO BID cefuroxime axetil 250 mg PO BID fluconazole 150 mg every other day for 14 days. Filled 08/15/23. #7 fosfomycin tromethamine 1 packet PO Q3D 2 doses guanfacine ER 1 - 2 mg (1 - 2 x 1 mg) PO QPM nitrofurantoin monohyd/m-cryst 100 mg (Macrobid) 100 mg PO Q12H 7 days ondansetron 4 mg PO Q6H PRN oxcarbazepine Take two tabs in the morning and 1 tab in the evening. oxycodone 5 mg PO BID PRN HPI HPI perianal cyst: Details: 45-year-old male referred for a perianal fluid collection. He went to the ER last 05/02/2025 because of kidney stones. At that time, a CAT scan was done which showed an incidental finding of a perianal fluid collection in the subcutaneous layer, 1.2 x 2 cm. He was therefore instructed to see me as an outpatient He says he is scheduled to have cystoscopy for his kidney stones next month He is a paraplegic. He he had a spinal cord injury about 20 years ago after a fall. He said he had multiple surgery for because of a decubitus ulcer on the left side. The last ones about 3-4 years ago. He had to undergo several debridement because of complications from the flaps He otherwise does not notice or feel anything outside his anus. Denies any discharge. He is mostly wheelchair-bound but he is able to do transfers himself. [facility] Medical History (Updated 05/31/25 @ 15:40 by Chucky Beverly MD) Subcutaneous mass Paraplegia Anorexia nervosa, restricting type History of atrial fibrillation Bicuspid aortic valve Fibromyalgia Surgical History History of spinal fusion History of plastic surgery Social History Household Members: Other Household Members Other:: Rooming house,where he rents a room Patient Tobacco Use Status: Former Tobacco user Tobacco use type: Cigarette Substance Use Type: Marijuana Review of Systems Const Denies chills and Denies fever(s) Card Denies chest pain, Denies dyspnea and Denies dyspnea on exertion Resp Denies cough, Denies dyspnea and Denies dyspnea on exertion GI Denies hematochezia and Denies change in bowel habits Denies hematuria and Denies difficulty urinating Musc Denies back pain and Denies limited range of motion Neuro Details: Paraplegic Denies convulsions Psych Denies depression and Denies mood swings Physical Exam Vital Signs: BMI result Body Mass Index 14.3 Const Other: On wheelchair General: comfortable and no acute distress Orientation/consciousness: patient oriented x3 Neck Neck: Yes no lymphadenopathy Resp Auscultation: clear to auscultation bilaterally Cardio Rhythm: regular rhythm GI Palpation (GI): Soft to palpation, nontender and no guarding Back/Spine/Pelvis Other: Examination of the perianal area shows this well-defined, soft, smooth subcutaneous mass in the left perianal area, without any skin redness, no evidence of any sinus, no skin breakdown Neuro Other: Paraplegic General: patient oriented x3 Assessment & Plan Assessment & Plan (1) Subcutaneous mass: Code(s): R22.9 - Localized swelling, mass and lump, unspecified Category: Medical Plan: He has this soft, well-defined, subcutaneous mass this appears to be fluid filled in the left perianal area. This was incidentally seen on his CAT scan. This does not appear to be an abscess. This is well-defined and maybe a chronic seroma as he has had previous surgeries on this area. He is wheelchair-bound but does not seem to have significant pressure ulcers I did tell him that this does not appear to be an infection but I can aspirate this has needle. He did not want that done and he says he not want any needles for now. He was extremely anxious and I told him that I can always see him in the office next month to see how this is coming along. I gave him my card so he can call the office to set up a follow up. He was comfortable with the plan. He did admit that his anxiety level was always I because of his previous trauma. Coding Level of Care Code New Pt Level 3 (82408) Diagnoses Subcutaneous mass R22.9
[2025-05-31 15:16] VITALS: BMI 14.3
--- OUTSIDE RECORDS SUMMARY | 2025-05-31 17:13 | XMS_ITS | Encounter Summary ---
Author Organization [facility] Address [address] [place] [phone] Phone Care Team Providers Care Furnace Loader Name Role Phone Jesse Longo MD, MPH Primary Care Provider + Raghavendra Mcknight CSR TECHNICIAN Unavailable [phone] Reason for Referral * Outpatient Procedure - Closed Specialty Diagnoses / Procedures Referred By Ludmila ivy Referred To Contact Radiology Diagnoses Abdominal pain, unspecified abdominal location Procedures NM Gastric Emptying Tim Montes De Oca MD [address] [place] [address] Phone: tel: fax: mailto:[email or web address] Referral ID Status Reason Start Date Expiration Date Visits Re quested Visits Authorized [id number] Closed 10/29/2023 10/28/2024 1 1 Encounter Details Date Type Department Care Team (Latest Contact Info) Description 10/29/2023 Transcribe Orders Virtual Department [address] [place] [address] Tim Montes De Oca MD [address] [address] [email or web address] Abdominal pain, unspecified abdominal location (Primary Dx) [...] Department Care Team (Latest Contact Info) Description 06/07/2025 8:30 AM EST Pre-Admission Testing Pre Procedure Evaluation [address] [place] [address] Milind Huston MD [address] [place] [address], [address] [address] [email or web address] 06/08/2025 Procedure Pass OR Admitting Dept - Virtual Department [address] [place] [address] 06/08/2025 12:03 PM EST Hospital Encounter OR Admitting Dept - Virtual Department [address] [place] [address] Milind Huston MD [address] [place] [address], [address] [address] [email or web address] 06/08/2025 12:03 PM EST - 06/08/2025 1:09 PM EST Surgery OR Admitting Dept - Virtual Department [address] [place] [address] [phone] Milind Huston MD [address] [place] [address], [address] [address] [email or web address] LASER LITHOTRIPSY BLADDER STONE Scheduled Procedures Name Priority Associated Diagnoses Date/Ti ga LASER LITHOTRIPSY BLADDER STONE BLADDER STONES 06/08/2025 12:03 PM EST documented as of this encounter Results [...] or greater of the standard meal (PMID: 45018655) and approximate the normative emptying values of [employer]urePlus (PMID: 25263661). Procedure Note Ariane Beckham MD - 11/11/2023 [...] 50% or greater of the standard meal(PMID: [id number]) and approximate the normative emptying values of[facility] (PMID: [id number]). IMPRESSION: Gastric emptying study within normal limits. [...] documented as of this encounter Care Teams Furnace Loader Relationship Specialty Start Date End Date Jesse Longo MD, MPH [address] [place] [address] [email or web address] PCP - General Family Medicine 01/09/18 Raghavendra Mcknight LICSW [address] [place] [address] PHCM Restaurant Expeditor 09/02/23 07/09/24 documented as of this encounter Additional Source Comments The information contained in this document represents components of the legal health record. It is not the complete legal health record.[facility]
--- OUTSIDE RECORDS SUMMARY | 2025-05-31 17:13 | XMS_ITS | Clinical Summary ---
Author Organization [facility] Address [address] [place] [address] Phone Care Team Providers Care Freight Unloader Name Role Phone Jesse Longo MD, MPH [...] 100 mg by mouth as needed. Active hydrOXYzine (VISTARIL) 25 MG capsule Take 25 mg by mouth 3 (three) times a day as needed for itching. Active Encounters Date Type Department Care Team Description 04/07/2025 8:39 AM EST - 04/07/2025 11:59 PM EST Hospital Encounter [facility] Emergency Department - [facility] [address] [place] [address] Michaela Jean MD Discharge Disposition: Home or Self Care 03/08/2025 Transcribe Orders Virtual Department [address] [place] [address] Michaela Jean MD Flaccid neurogenic bladder (Primary [...] - - Weight 52.2 kg (115 lb) 05/25/2025 1:19 PM EST Height 188 cm (6' 2 ) 05/25/2025 1:19 PM EST Body Mass Index 14.77 05/25/2025 1:19 PM EST Plan of Treatment Upcoming Encounters Date Type Department Care Team (Latest Contact Info) Description 06/07/2025 8:30 AM EST Pre-Admission Testing Pre Procedure Evaluation [address] [place] [address] Milind Huston MD [address] [place] [address], [address] [place] [address] [email or web address] 06/08/2025 Procedure Pass OR Admitting Dept - Virtual Department [address] [place] [address] 06/08/2025 12:03 PM EST Hospital Encounter OR Admitting Dept - Virtual Department [address] [place] [address] Milind Huston MD [address] [place] [address], [address] [place] [address] [email or web address] 06/08/2025 12:03 PM EST - 06/08/2025 1:09 PM EST Surgery OR Admitting Dept - Virtual Department [address] [place] [address] Milind Huston MD [address] [place] [address], [address] [place] [address] [email or web address] LASER LITHOTRIPSY BLADDER STONE Scheduled Procedures Name Priority Associated Diagnoses Date/Ti me LASER LITHOTRIPSY BLADDER STONE BLADDER STONES 06/08/2025 12:03 PM EST Health Maintenance Due Date Last Done [...] Anais [employer] Implanted Type Area Grinding Operator Device Identifier Shelf Expiration Date Model / [...] clinician's provided indication for this examination in [facility]: Outside Radiology Order TECHNIQUE: Kidney and [...] clinician's provided indication for this examination in [facility]:Outside Radiology Order TECHNIQUE: Kidney and bladder [...] stone within the bladder. Michaela Jean MD [facility] Final Re sult from Last 3 Months Additional Health Concerns Active Problems Noted Date Diagnosed Date Autogenerated Problem 05/10/2025 Insurance [facility] [place] [facility] [place] [facility] [employer] POS [facility] [place] [facility] [place] [id number] [facility] [place] [facility] Care Teams Freight Unloader Relationship Specialty Start Date End Date Jesse Longo MD, MPH [address] [place] [address] [email or web address] PCP - General Family Medicine 01/09/18 Additional Source Comments The information contained in this document represents components of the legal health record. It is not the complete legal health record.[facility]
--- OUTSIDE RECORDS SUMMARY | 2025-05-31 17:13 | XMS_ITS | Encounter Summary ---
Author Organization [facility] Address [address] [address] Phone Care Team Providers Care Manager Government Name Role Phone Jesse Longo MD, MPH Primary Care Provider + Raghavendra Mcknight CARDIAC REHABILITATION SPECIALIST Unavailable [phone] Encounter Details Date Type Department Care Team (Late st Contact Info) Description 10/22/2023 Procedure Pass [facility] Endoscopy Admitting Dept Virtual Department [address] [place] [address] Social History Tobacco Use Types Packs/Day Years [...] AM EST Pre-Admission Testing Pre Procedure Evaluation [address] [place] [address] Milind Huston MD [address] [place] [address], [address] [place] [phone] [email or web address] 06/08/2025 Procedure Pass OR Admitting Dept - Virtual Department [address] [place] [address] 06/08/2025 12:03 PM EST Hospital Encounter OR Admitting Dept - Virtual Department [address] [place] [address] Milind Huston MD [address] [place] [address], [address] [place] [address] [email or web address] 06/08/2025 12:03 PM EST - 06/08/2025 1:09 PM EST Surgery OR Admitting Dept - Virtual Department [address] [place] [address] Milind Huston MD [address] [place] [address], [address] [place] [address] [email or web address] LASER LITHOTRIPSY BLADDER STONE Scheduled Procedures Name Priority Associated Diagnoses Date/Ti tx LASER LITHOTRIPSY BLADDER STONE BLADDER STONES 06/08/2025 12:03 PM EST documented as of this encounter Visit Diagnoses Not on filedocumented in this encounter Additional Health Concerns Assessment Noted Time PHQ-9 Depression Total Score: 19 024 1:00 PM EDT PHQ-2 Depression Total Score: 5 09/16/19 24 1:00 PM EDT documented as of this encounter Care Teams Manager Government Relationship Specialty Start Date End Date Jesse Longo MD, MPH [address] [place] [address] [email or web address] PCP - General Family Medicine 01/09/18 Raghavendra Mcknight LICSW [address] [place] [address] [email or web address] PHCM Commercial Truck Driver 09/02/23 07/09/24 documented as of this encounter Additional Source Comments The information contained in this document represents components of the legal health record. It is not the complete legal health record.[facility]
== END 2025-05-31 15:31 | disposition home or self-care (01) ==
LOC: HO.HGS 14:54
PROVIDERS: PCP Family Medicine; Visit Provider Surgery
DX: R22.9 Localized swelling, mass and lump, unspecified (principal)
CPT/HCPCS: 99203